=== PATIENT | female | born 1990 | race Caucasian/White ===

== ENCOUNTER → 2017-02-18 | Outpatient (CLI) | payer OTHER ==
[~2017-02-18] MED LIST: FERR-57 PO; HYDR-3730 PO; LEVO50TA6 PO; LVT.05T PO; PREN1TAB71 PO; PROM25TA14 PO
== END ==
LOC: LAB 13:10
PROVIDERS: ATTEND Family Medicine
DX: E03.9 Hypothyroidism, unspecified (principal)
CPT/HCPCS: 36415; 84443

== ENCOUNTER 2017-05-16 14:06 | Outpatient (RCR) | payer OTHER | END 2017-07-23 | disposition home or self-care (01) | LOC: CARD 14:06 | PROVIDERS: ATTEND Physician Assistant | DX: R55 Syncope and collapse (principal); E03.9 Hypothyroidism, unspecified; Z82.49 Family history of ischemic heart disease and other diseases of the circulatory system; Z83.3 Family history of diabetes mellitus | CPT/HCPCS: 93225; 93226 ==

== ENCOUNTER → 2017-05-16 | Outpatient (CLI) | payer OTHER ==
[2017-05-16 14:17] LABS: BASOPHILS # (AUTO) 0.1 10^3/uL (0.0-0.1); BASOPHILS % (AUTO) 1 % (0-10); EOSINOPHILS # (AUTO) 0.1 10^3/uL (0.0-0.3); EOSINOPHILS % (AUTO) 2 % (0-10); LYMPHOCYTES # (AUTO) 2.3 X 10^3 (1.0-4.0); LYMPHOCYTES % (AUTO) 26 % (12-44); MEAN CORPUSCULAR HEMOGLOBIN 30 PG (25-34); MEAN CORPUSCULAR HGB CONC 35 G/DL (32-36); MEAN CORPUSCULAR VOLUME 88 FL (80-99); MEAN PLATELET VOLUME 10.7 FL (7.4-10.4); MONOCYTES # (AUTO) 0.8 X 10^3 (0.0-1.0); MONOCYTES % (AUTO) 9 % (0-12); NEUTROPHILS # (AUTO) 5.7 X 10^3 (1.8-7.8); NEUTROPHILS % (AUTO) 63 % (42-75); PLATELET COUNT 285 10^3/uL (130-400); RED BLOOD COUNT 4.27 10^6/uL (4.35-5.85); RED CELL DISTRIBUTION WIDTH 12.1 % (10.0-14.5); WHITE BLOOD COUNT 9.1 10^3/uL (4.3-11.0)
[2017-05-16 14:29] LABS: CALCIUM 9.1 MG/DL (8.5-10.1); CHLORIDE 103 MMOL/L (98-107); MAGNESIUM 2.6 MG/DL (1.8-2.4); POTASSIUM 3.6 MMOL/L (3.6-5.0); SODIUM 138 MMOL/L (135-145)
[2017-05-16 14:49] LABS: ALBUMIN 4.5 GM/DL (3.2-4.5); BILIRUBIN,TOTAL 0.5 MG/DL (0.1-1.0); BLOOD UREA NITROGEN 11 MG/DL (7-18); BUN/CREATININE RATIO 14; CREATININE SERUM 0.79 MG/DL (0.60-1.30); GFR ESTIMATED > 60; GLUCOSE 101 MG/DL (70-105); TOTAL PROTEIN 7.3 GM/DL (6.4-8.2)
[2017-05-16 14:50] LABS: ALANINE AMINOTRANSFERASE 15 U/L (0-55); ASPARTATE AMINO TRANSFERASE 57 U/L (5-34)
[2017-05-16 14:56] LABS: THYROID STIMULATING HORMONE 1.36 UIU/ML (0.35-4.94)
[2017-05-16 14:59] LABS: ANION GAP 10 MMOL/L (5-14); CARBON DIOXIDE 24 MMOL/L (21-32)
== END ==
LOC: CARD 13:59
PROVIDERS: ATTEND Physician Assistant
DX: R55 Syncope and collapse (principal); E03.9 Hypothyroidism, unspecified; Z82.49 Family history of ischemic heart disease and other diseases of the circulatory system; Z83.3 Family history of diabetes mellitus
CPT/HCPCS: 36415; 80053; 83735; 84443; 84703; 85025; 93306

== ENCOUNTER → 2017-08-10 | Outpatient (CLI) | payer OTHER ==
--- NOTE | 2017-08-10 17:57 | Diagnostic Imaging Report ---
PROCEDURE: MR imaging of the brain without contrast. TECHNIQUE: Multiplanar, multisequence MR imaging of the brain was performed without contrast. INDICATION: Syncope. FINDINGS: There is no diffusion restriction to suggest an acute infarct or other diffusion abnormality. The brain parenchyma has normal signal in the harris and white matter with no evidence of a demyelinating lesion, brain edema or mass. There is no hydrocephalus. No extra-axial fluid collection is seen. The pituitary gland is normal in size. No hypothalamic or pineal region mass. The central vascular flow-voids appear grossly unremarkable. The internal auditory canals and inner ear structures appear symmetric. The orbits appear symmetric. The frontal sinuses are hypoplastic. There is thickening of the mucosa along the middle and inferior turbinates suggested. IMPRESSION: No intracranial abnormality seen. Dictated by: Dictated on workstation # [id number]
== END ==
LOC: RAD 16:40
PROVIDERS: ATTEND Psychiatry & Neurology Neurology
DX: G40.309 Generalized idiopathic epilepsy and epileptic syndromes, not intractable, without status epilepticus (principal); R55 Syncope and collapse
CPT/HCPCS: 70551

== ENCOUNTER → 2017-11-23 | Outpatient (CLI) | payer OTHER ==
[~2017-11-23] VITALS: Ht 165.1 cm; Wt 68.0 kg
[2017-11-23] VITALS (31 sets, daily range): BP systolic 51–128; BP diastolic 31–96
[~2017-11-23] MED LIST changes: +ATROPINE INJECTION 1 MG/10 ML SYR (ABBOTT) ONE; +NS IV 1000 ML 1,000 ML ONE
--- NOTE | 2017-11-23 14:50 | Cardiology Tilt Table Test ---
EULA PINK 11/23/17 1450: Cardiology-Tilt Table Test Tilt Table Test Date 11/23/17 Baseline Vitals Vital Signs Date Time Temp Pulse Resp B/P (MAP) Pulse Ox O2 Delivery O2 Flow Rate FiO2 11/23/17 11:24 98.1 80 16 100 Vital Signs VS - Last 72 Hours, by Label 11/23/17 11/23/17 11/23/17 11/23/17 11:24 11:25 11:50 11:51 Temp 98.1 Pulse 80 88 89 Resp 16 B/P (MAP) 117/81 (93) 121/89 (100) 127/96 (106) Pulse Ox 100 100 99 11/23/17 11/23/17 11/23/17 11/23/17 11:52 11:52 11:54 11:55 Pulse 92 105 92 98 Resp 23 B/P (MAP) 115/89 (98) 120/91 (101) 109/89 (96) 123/91 (102) Pulse Ox 100 100 100 100 11/23/17 11/23/17 11/23/17 11/23/17 11:56 11:57 11:58 11:59 Pulse 105 111 98 83 B/P (MAP) 117/88 (98) 113/88 (96) 124/90 (101) 120/95 (103) Pulse Ox 100 100 100 98 11/23/17 11/23/17 11/23/17 11/23/17 12:00 12:02 12:03 12:04 Pulse 78 82 72 77 Resp 17 B/P (MAP) 113/76 (88) 112/74 (87) 111/78 (89) 116/76 (89) Pulse Ox 99 99 100 99 11/23/17 11/23/17 11/23/17 11/23/17 12:05 12:06 12:07 12:09 Pulse 109 121 112 131 B/P (MAP) 126/87 (100) 124/73 (90) 109/79 (89) 114/83 (93) Pulse Ox 98 98 98 98 11/23/17 11/23/17 11/23/17 11/23/17 12:11 12:12 12:15 12:16 Pulse 125 126 117 131 B/P (MAP) 117/84 (95) 109/76 (87) 116/72 (87) 128/74 (92) Pulse Ox 99 98 100 100 11/23/17 11/23/17 11/23/17 11/23/17 12:17 12:18 12:19 12:20 Pulse 123 78 90 87 B/P (MAP) 110/67 (81) 51/31 (38) 80/55 (63) 111/70 (84) Pulse Ox 99 100 99 100 11/23/17 11/23/17 11/23/17 11/23/17 12:22 12:26 12:30 12:33 Pulse 91 92 76 89 B/P (MAP) 108/77 (87) 125/91 (102) 111/84 (93) 110/73 (85) Pulse Ox 100 100 98 99 11/23/17 12:47 Pulse 90 B/P (MAP) 109/90 (96) Patient was tilted to 75 degrees for [10] minutes, then returned to supine position, given [2] sublingual nitroglycerin tablets, then tilted again to 75 degrees for [15] minutes. During test, patient was: symptomatic (hypotensive with vasovagal event with N/ V. ) In Conclusion;: Negative Tilt Table Test At stage 2, minute 10, patient became hypotensive with BP 51/31. Heart rate dropped from 130-55. Patient was symptomatic with vasovagal event with N/V. She became unable to move her arms and legs for several minutes after brought to supine position, and had severe spasm in her arms. No full syncope was noted. Recommended CHEVY hose and will consider LINq implantation for further monitoring as this test failed to produce the symptoms and syncopal events that have been occurring. This is Eula Gray PA-C, as a scribe for Dr. Zaldivar. JUSTYNA ZALDIVAR MD 11/23/17 1623: Cardiology-Tilt Table Test Tilt Table Test In Conclusion;: Negative Tilt Table Test Patient has vague reaction with severe hypotension nausea and vomiting, had severe spasm and inability to move her hands for about 10 minutes then started regaining muscle strength slowly. No full syncope was reported. Transient bradycardia with a heart rate in the 50s but patient did not have a syncopal episode, we were unable to reproduce her syncope. I instructed her to stay heart wearing CHEVY hose, we'll consider Loop recorder EULA PINK Nov 23, 2017 14:50 JUSYTNA ZALDIVAR MD Nov 23, 2017 16:23
== END ==
LOC: CARD 09:46
PROVIDERS: ATTEND Physician Assistant
DX: R55 Syncope and collapse (principal)
CPT/HCPCS: 93660

== ENCOUNTER → 2017-11-28 | Day surgery (SDC) | payer OTHER ==
[~2017-11-28] VITALS: Ht 165.1 cm; Wt 68.0 kg
[~2017-11-28] MED LIST changes: -ATROPINE INJECTION 1 MG/10 ML SYR (ABBOTT) ONE; +LIDOCAINE 1% INJ 50 ML (XYLOCAINE) VIAL ONE; -NS IV 1000 ML 1,000 ML ONE
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
[2017-11-28 10:57] VITALS: BP 120/82
--- NOTE | 2017-11-28 21:24 | OPERATIVE REPORT ---
DATE OF SERVICE: 11/28/2017 REVEAL DEVICE IMPLANTATION REPORT BRIEF HISTORY: The patient is a 27-year-old lady with history of recurrent syncope, workup has failed to reproduce the syncopal episode, still having episodes of syncope. She was scheduled for Reveal device implantation. PROCEDURE NOTE: After explaining the procedure to the patient, all pros and cons were explained. The patient was placed in the holding area. No sedation was needed. Local anesthesia applied and small skin incision was made. Then, a Reveal LINQ Medtronic with serial #[id number] implanted subcutaneously, manual pressure and Dermabond applied. No complication noted. CONCLUSION: Successful Reveal device implantation with no complication. FINAL DIAGNOSIS: Syncope. Job ID: [id number] DocumentID: [id number] Dictated Date: 11/28/2017 11:33:03 Wet Milling Wheel Operator Date: 11/28/2017 21:24:12 Dictated By: JUSTYNA BATES MD
== END | disposition home or self-care (01) ==
LOC: CATH 10:18
PROVIDERS: ATTEND Internal Medicine Cardiovascular Disease
DX: R55 Syncope and collapse (principal); E03.9 Hypothyroidism, unspecified; G40.909 Epilepsy, unspecified, not intractable, without status epilepticus; Z79.899 Other long term (current) drug therapy
CPT/HCPCS: 33282

== ENCOUNTER 2018-08-16 01:47 | Emergency (ER) | payer OTHER ==
[~2018-08-16] VITALS: Ht 165.1 cm; Wt 66.2 kg
[~2018-08-16 01:47] MED LIST changes: -LIDOCAINE 1% INJ 50 ML (XYLOCAINE) VIAL ONE
[2018-08-16] MEDS ORDERED: LACTATED RINGERS 1,000 ML IV ONE (02:01)
--- NOTE | 2018-08-16 02:09 | ED GI ---
General Chief Complaint: Abdominal/GI Problems Stated Complaint: N,V,D Source of Information: Patient, Family (father) Exam Limitations: No Limitations History of Present Illness Date Seen by Provider: Aug 16, 2018 Time Seen by Provider: 01:56 Initial Comments The patient presents to the ER by private conveyance with her father a chief complaint that she for the past day and a half has been experiencing nausea vomiting diarrhea. She's had poor oral intake because every time she eats she vomits it. She says she has no history of medical problems or history of abdominal surgeries. She's had no trauma. Her son has been sick Tuesday with some diarrhea. She denies drinking from unsafe water sources, camping, travel outside the [facility] or any history of irritable bowel syndrome or inflammatory bowel disease. She has not had anything for nausea and does not take Imodium but she had tried some Tums with minimal to no relief. She denies dysuria fevers but she does have some chills. She plan to follow-up with Dr. Castro her primary care provider tomorrow but she did not think she could make it through the night. She says last night she slept on the bathroom floor. Allergies and Home Medications Allergies Coded Allergies: No Known Drug Allergies (Unverified , 08/16/18) Home Medications Ferrous Sulfate 325 Mg Tablet, 325 MG PO BID Prescribed by: DOMINIQUE MCCLURE on 03/09/151943 Hydrocodone/Acetaminophen 1 Each Tablet, 1 EACH PO Q6H PRN for HEADACHE Prescribed by: RAMY SHANKAR on 10/07/16 1025 Levothyroxine Sodium 50 Mcg Tablet, 1 TAB PO DAILY, (Reported) Levothyroxine Sodium 50 Mcg Tablet, 50 MCG PO DAILY, (Reported) Vit/Fe Fumarate/Fa 1 Each Tablet, 1 EACH PO DAILY Prescribed by: DOMINIQUE MCCLURE on 03/09/151942 Promethazine HCl 25 Mg Tablet, 25 MG PO Q6H PRN for NAUSEA/VOMITING Prescribed by: RAMY SHANKAR on 10/07/16 1025 Patient Home Medication List Home Medication List Reviewed: Yes Review of Systems Review of Systems Constitutional: No chills, No diaphoresis EENTM: No Blurred Vision, No Double Vision Respiratory: Denies Cough, Denies Shortness of Air Cardiovascular: Denies Chest Pain, Denies Edema Gastrointestinal: Denies Abdomen Distended; Abdominal Pain; Denies Constipated ; Diarrhea, Nausea, Poor Fluid Intake, Vomiting Genitourinary: Denies Burning, Denies Discharge Musculoskeletal: No back pain, No joint pain Skin: No pruritus, No rash Past [id number]-Cdxsxz-Efmadr Hx Patient Social History Alcohol Use: Rarely Uses Recreational Drug Use: No Smoking Status: Never a Smoker Recent Foreign Travel: No Contact w/Someone Who Travel: No Immunizations Up To Date Tetanus Booster (TDap): Less than 5yrs PED Vaccines UTD: Yes Past Medical History Reproductive Disorders: No Female Reproductive Disorders: Denies Sexually Transmitted Disease: No HIV/AIDS: No Fractures Eczema Adverse Reaction/Blood Tranf: No Family Medical History Hypercholesterolemia 19 MOTHER Hypertension 19 MOTHER No Family History of: AIDS Abdominal aortic aneurysm [place]'s disease Alcoholism Alzheimer's disease Aphasia Arthritis Asthma Cancer of mouth Cardiovascular disease Cataracts Colon cancer Completed stroke Congenital disease Congenital heart disease Coronary thrombosis Cystic fibrosis Deafness or hearing loss Dementia Diabetes mellitus Drug abuse Dysphasia Fibrocystic disease of breast Gastroenteritis Glaucoma Headache disorder Infertility Kidney disease Myocardial infarction Neoplasm Not obtainable due to adoption Osteoporosis Parkinson's disease Prostate cancer Psychosocial problem Respiratory disorder Seizure disorder Severe allergy Thyroid disease Tuberculosis Visual disorder Physical Exam Vital Signs Vital Signs - First Documented 08/16/18 01:55 Temp 97.4 Pulse 110 Resp 22 B/P (MAP) 137/101 (113) Pulse Ox 100 O2 Delivery Room Air Capillary Refill : Less Than 3 Seconds Height/Weight/BMI Height: 5'5.00" Weight: 146lbs. 0.0oz. 66.433678vu; 25.0 BMI Method:Stated General Appearance: WD/WN, no apparent distress HEENT: PERRL/EOMI, TMs normal, pharynx normal Respiratory: lungs clear, no respiratory distress, no accessory muscle use Cardiovascular: normal peripheral pulses, regular rate, rhythm, no edema Peripheral Pulses: 2+ Radial Pulses (R), 2+ Radial Pulses (L) Gastrointestinal: soft, no organomegaly, abnormal bowel sounds (active); No rebound; other (negative for Garrett sign or rebound tenderness or McBurney's point tenderness. Generally tender to palpation mildly all 4 quadrants.) Extremities: normal range of motion, normal inspection, normal capillary refill Skin: normal color, warm/dry Progress/Results/Core Measures Results/Orders Lab Results Laboratory Tests Test 08/16/18 02:10 08/16/18 02:50 Range/Units White Blood Count 11.3 H 4.3-11.0 10^3/uL Red Blood Count 4.64 4.35-5.85 10^6/uL Hemoglobin 14.4 11.5-16.0 G/DL Hematocrit 40 35-52 % Mean Corpuscular Volume 86 80-99 FL Mean Corpuscular Hemoglobin 31 25-34 PG Mean Corpuscular Hemoglobin Concent 36 32-36 G/DL Red Cell Distribution Width 12.3 10.0-14.5 % Platelet Count 331 130-400 10^3/uL Mean Platelet Volume 10.8 H 7.4-10.4 FL Neutrophils (%) (Auto) 73 42-75 % Lymphocytes (%) (Auto) 15 12-44 % Monocytes (%) (Auto) 10 0-12 % Eosinophils (%) (Auto) 2 0-10 % Basophils (%) (Auto) 0 0-10 % Neutrophils # (Auto) 8.2 H 1.8-7.8 X 10^3 Lymphocytes # (Auto) 1.6 1.0-4.0 X 10^3 Monocytes # (Auto) 1.2 H 0.0-1.0 X 10^3 Eosinophils # (Auto) 0.2 0.0-0.3 10^3/uL Basophils # (Auto) 0.0 0.0-0.1 10^3/uL Sodium Level 138 135-145 MMOL/L Potassium Level 3.8 3.6-5.0 MMOL/L Chloride Level 101 98-107 MMOL/L Carbon Dioxide Level 22 21-32 MMOL/L Anion Gap 15 H 5-14 MMOL/L Blood Urea Nitrogen 11 7-18 MG/DL Creatinine 0.85 0.60-1.30 MG/DL Estimat Glomerular Filtration Rate > 60 BUN/Creatinine Ratio 13 Glucose Level 112 H 70-105 MG/DL Calcium Level 11.1 H 8.5-10.1 MG/DL Corrected Calcium 8.5-10.1 MG/DL Magnesium Level 2.3 1.8-2.4 MG/DL Total Bilirubin 1.0 0.1-1.0 MG/DL Aspartate Amino Transf (AST/SGOT) 46 H 5-34 U/L Alanine Aminotransferase (ALT/SGPT) 13 0-55 U/L Alkaline Phosphatase 72 40-136 U/L C-Reactive Protein High Sensitivity 1.08 H 0.00-0.50 MG/DL Total Protein 8.5 H 6.4-8.2 GM/DL Albumin 5.1 H 3.2-4.5 GM/DL Lipase 20 8-78 U/L Serum Test, Qualitative NEGATIVE NEGATIVE Urine Color YELLOW Urine Clarity CLEAR Urine pH 8 5-9 Urine Specific Ubly 1.010 L 1.016-1.022 Urine Protein 1+ H NEGATIVE Urine Glucose (UA) NEGATIVE NEGATIVE Urine Ketones 3+ H NEGATIVE Urine Nitrite NEGATIVE NEGATIVE Urine Bilirubin 1+ H NEGATIVE Urine Urobilinogen 1 NORMAL MG/DL Urine Leukocyte Esterase 1+ H NEGATIVE Urine RBC (Auto) NEGATIVE NEGATIVE Urine RBC NONE /HPF Urine WBC RARE /HPF Urine Squamous Epithelial Cells 5-10 /HPF Urine Crystals NONE /LPF Urine Bacteria TRACE /HPF Urine Casts NONE /LPF Urine Mucus MODERATE H /LPF Urine Culture Indicated NO My Orders Orders - RUBEN FREITAS Cbc With Automated Diff (08/16/18 02:01) Comprehensive Metabolic Panel (08/16/18 02:01) Hs C Reactive Protein (08/16/18 02:01) Hcg,Qualitative Serum (08/16/18 02:01) Lipase (08/16/18 02:01) Magnesium (08/16/18 02:01) Ua Culture If Indicated (08/16/18 02:01) Saline Lock/Iv-Start (08/16/18 02:01) Lactated Ringers (Lr 1000 Ml Iv Solution (08/16/18 02:01) Ondansetron Injection (Zofran Injectio (08/16/18 02:15) Lidocaine 2% Viscous 15 Ml (Xylocaine Vi (08/16/18 03:30) Famotidine Tablet (Pepcid Tablet) (08/16/18 03:20) Antacid Suspension (Mylanta Suspension (08/16/18 03:30) Medications Given in ED Current Medications Medications Dose Ordered Sig/Peggy Route Start Time Stop Time Status Last Admin Dose Admin Al Hydrox/Mg Hydrox/Simethicone 30 ml ONCE ONCE PO 08/16/18 03:30 08/16/18 03:31 DC 08/16/18 03:25 30 ML Lactated Ringer's 1,000 ml @ 0 mls/hr Q0M ONCE IV 08/16/18 02:01 08/16/18 02:04 DC 08/16/18 02:16 1,000 MLS/HR Lidocaine HCl 15 ml ONCE ONCE PO 08/16/18 03:30 08/16/18 03:31 DC 08/16/18 03:25 15 ML Ondansetron HCl 4 mg ONCE ONCE IVP 08/16/18 02:15 08/16/18 02:16 DC 08/16/18 02:16 4 MG Vital Signs/I&O 08/16/18 01:55 Temp 97.4 Pulse 110 Resp 22 B/P (MAP) 137/101 (113) Pulse Ox 100 O2 Delivery Room Air Progress Progress Note #1: Time: 02:07 Progress Note The patient appears mildly dehydrated. She sounds like she has gastroenteritis probably from a virus. No significant risk factors. Check some basic labs give some IV fluids and IV Zofran on board and check a lipase, UA, hCG. Progress Note #2: Time: 03:33 Progress Note the patient's nausea and fluids resolved. She still complaining of burning, reflux pain so we gave her a GI cocktail and that seemed to help some. Let her go home with some take-home Zofran. Departure Impression Primary Impression: Gastroenteritis and colitis, viral Additional Impression: GERD (gastroesophageal reflux disease) Qualified Codes: K21.9 - Gastro-esophageal reflux disease without esophagitis Disposition: 01 HOME, SELF-CARE Condition: Improved Departure-Patient Inst. Decision time for Depature: 03:34 Referrals: KOBY PARK MD (PCP/Family) Primary Care Physician Patient Instructions: [id number] Add. Discharge Instructions: Use the Zofran every 6 hours as needed. If you're having acid reflux you can take Tums or Mylanta. If you're having diarrhea you can take 2 tablets of Imodium followed by one tablet every 4 hours afterwards if you're still having loose watery stools. Eating a liquid diet and as you tolerate this you can advance to a more bland foods such as bananas, rice, applesauce and toast. All discharge instructions reviewed with patient and/or family. Voiced understanding. Scripts Ondansetron (Ondansetron Odt) 4 Mg Tab.rapdis 4 MG PO Q6H PRN for NAUSEA/VOMITING, #8 TAB 0 Refills Prov: RUBEN FREITAS 08/16/18 Work/School Note: Work Release Form Date Seen in the Emergency Department: Aug 16, 2018 Return to Work: Aug 17, 2018 Restrictions: No Restrictions RUBEN FREITAS Aug 16, 2018 02:09
[2018-08-16] MEDS ORDERED: ONDANSETRON 4 MG/2 ML (SDV) Z0FRAN IVP ONE (02:15)
[2018-08-16 02:19] LABS: BASOPHILS % (AUTO) 0 % (0-10); EOSINOPHILS # (AUTO) 0.2 10^3/uL (0.0-0.3); EOSINOPHILS % (AUTO) 2 % (0-10); HEMATOCRIT 40 % (35-52); HEMOGLOBIN 14.4 G/DL (11.5-16.0); LYMPHOCYTES # (AUTO) 1.6 X 10^3 (1.0-4.0); LYMPHOCYTES % (AUTO) 15 % (12-44); MEAN CORPUSCULAR HEMOGLOBIN 31 PG (25-34); MEAN CORPUSCULAR HGB CONC 36 G/DL (32-36); MEAN CORPUSCULAR VOLUME 86 FL (80-99); MEAN PLATELET VOLUME 10.8 FL (7.4-10.4); MONOCYTES # (AUTO) 1.2 X 10^3 (0.0-1.0); MONOCYTES % (AUTO) 10 % (0-12); NEUTROPHILS # (AUTO) 8.2 X 10^3 (1.8-7.8); NEUTROPHILS % (AUTO) 73 % (42-75); PLATELET COUNT 331 10^3/uL (130-400); RED BLOOD COUNT 4.64 10^6/uL (4.35-5.85); RED CELL DISTRIBUTION WIDTH 12.3 % (10.0-14.5); WHITE BLOOD COUNT 11.3 10^3/uL (4.3-11.0)
[2018-08-16] MEDS ORDERED: LEVE250T18 PO (02:35)
[2018-08-16 02:38] LABS: ALANINE AMINOTRANSFERASE 13 U/L (0-55); ALBUMIN 5.1 GM/DL (3.2-4.5); ALKALINE PHOSPHATASE 72 U/L (40-136); BUN/CREATININE RATIO 13; CALCIUM 11.1 MG/DL (8.5-10.1); CARBON DIOXIDE 22 MMOL/L (21-32); CHLORIDE 101 MMOL/L (98-107); CREATININE SERUM 0.85 MG/DL (0.60-1.30); GFR ESTIMATED > 60; GLUCOSE 112 MG/DL (70-105); LIPASE 20 U/L (8-78); MAGNESIUM 2.3 MG/DL (1.8-2.4); POTASSIUM 3.8 MMOL/L (3.6-5.0); SODIUM 138 MMOL/L (135-145); TOTAL PROTEIN 8.5 GM/DL (6.4-8.2)
[2018-08-16 02:57] LABS: CLARITY,URINE CLEAR; COLOR,URINE YELLOW; GLUCOSE, URINE (UA) NEGATIVE (NEGATIVE); KETONES,URINE 3+ (NEGATIVE); LEUKOCYTE ESTERASE ,URINE 1+ (NEGATIVE); NITRITE,URINE NEGATIVE (NEGATIVE); PH,URINE 8 (5-9); PROTEIN,URINE 1+ (NEGATIVE); UROBILINOGEN,URINE 1 MG/DL (NORMAL)
[2018-08-16 03:05] LABS: BACTERIA,URINE TRACE /HPF; BILIRUBIN,URINE 1+ (NEGATIVE); WBC,URINE RARE /HPF
[2018-08-16] MEDS ORDERED: FAMOTIDINE 20 MG (PEPCID) TABLET PO STA (03:20)
[2018-08-16] MEDS ORDERED: LIDOCAINE 2% VISCOUS 15 ML UDC PO ONE (03:30)
[2018-08-16] MEDS ORDERED: ANTACID SUSP 30 ML UDC (MYLANTA) PO ONE (03:30)
[2018-08-16] MEDS ORDERED: ONDA4TAB11 PO (03:40)
[2018-08-16] MEDS ORDERED: RX-ONDANSETRON 4 MG ODT (ZOFRAN) PPK #4 PO STA (03:41)
[2018-08-16 04:12] VITALS: BP 109/87
== END 2018-08-16 04:08 | disposition home or self-care (01) ==
LOC: EDUNIT# 01:47 → ER 01:49
DX: A08.4 Viral intestinal infection, unspecified (principal); K21.9 Gastro-esophageal reflux disease without esophagitis
CPT/HCPCS: 36415; 80053; 81000; 83690; 83735; 84703; 85025; 86141; 96361; 96374

== ENCOUNTER → 2018-09-28 | Outpatient (CLI) | payer OTHER ==
[~2018-09-28] MED LIST changes: +LEVE250T18 PO; +ONDA4TAB11 PO
== END ==
LOC: LAB 10:56
PROVIDERS: ATTEND Physician Assistant
DX: Z32.01 Encounter for pregnancy test, result positive (principal)
CPT/HCPCS: 36415; 84703

== ENCOUNTER → 2018-10-20 | Outpatient (CLI) | payer OTHER ==
--- NOTE | 2018-10-20 12:05 | Diagnostic Imaging Report ---
PROCEDURE: US OB SINGLE FETUS <14 WKS. TECHNIQUE: Multiple real-time grayscale images were obtained over the gravid uterus in various projections. INDICATION: dating. FINDINGS: There is an intrauterine gestational sac containing a pole. [place]-rump length measurement is approximately 11 mm consistent with 7 weeks 2 days gestation. heart rate is recorded at 163 beats per minute. No perigestational sac hemorrhage is detected. Gestational sac shape is within normal limits. Ovaries could not be visualized. No adnexal mass or free fluid is seen. IMPRESSION: Single live IUP of approximately 7 weeks 2 days gestational age with estimated date of confinement sonographically approximately 06/06/2019. No complicating feature is detected. Dictated by: Dictated on workstation # [id number]
== END ==
LOC: RAD 09:31
PROVIDERS: ATTEND Family Medicine
DX: Z36.89 Encounter for other specified antenatal screening (principal); Z3A.01 Less than 8 weeks gestation of pregnancy
CPT/HCPCS: 76801

== ENCOUNTER → 2019-01-26 | Outpatient (CLI) | payer BC, OTHER ==
--- NOTE | 2019-01-26 14:03 | Diagnostic Imaging Report ---
INDICATION: survey. TECHNIQUE: Multiple real-time grayscale images were obtained over the gravid uterus. COMPARISON: 10/20/2018. FINDINGS: There is a single live fetus in a breech presentation. heart rate was recorded at 143 beats per minute. Placenta is anterior. Amniotic fluid volume is normal. Cervical length is approximately 4.0 cm. survey demonstrates kidneys, bladder, and stomach to be unremarkable. brain is unremarkable. There is a four-chamber heart. There is a three-vessel cord with normal insertion. The spine is unremarkable. Biometrical measurements are as follows: Biparietal 5.21 cm, age 21 weeks 6 days. Head circumference 19.21 cm, age 21 weeks 4 days. Abdominal circumference 16.78 cm, age 21 weeks 6 days. Femur length 3.68 cm, age 21 weeks 5 days. Sonographic estimate age: 21 weeks 6 days. Sonographic estimated date of delivery: 06/02/2019. Estimated Weight: 446 gm (+/- 65 gm). LMP percentile: 68%. heart rate: 143 beats per minute. number: 1 of 1. IMPRESSION: Single live IUP of 21 weeks 6 days gestational age demonstrating normal interval growth when compared with prior exam from 10/20/2018. Dictated by: Dictated on workstation # [id number]
== END ==
LOC: RAD 12:20
PROVIDERS: ATTEND Family Medicine
DX: Z36.89 Encounter for other specified antenatal screening (principal); Z3A.21 21 weeks gestation of pregnancy
CPT/HCPCS: 76805

== ENCOUNTER → 2019-03-14 | Outpatient (CLI) | payer OTHER | LOC: LAB 09:36 | PROVIDERS: ATTEND Family Medicine | DX: Z29.13 Encounter for prophylactic Rho(D) immune globulin (principal) ==

== ENCOUNTER 2019-05-17 16:50 | Outpatient (CLI) | payer OTHER ==
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
--- NOTE | 2019-05-17 16:57 | NUR ---
KRISTA RODRIGUEZ presented to unit via ambulation from Dr. Blanco's office, with c/o DECREASED MOVEMENT. KRISTA RODRIGUEZ weighed, gowned, voided, and to bed. EFHM and TOCO applied, VS taken. KRISTA RODRIGUEZ oriented to bed controls, call light, TV, heat, and A/C controls.
--- NOTE | 2019-05-17 17:39 | NUR ---
Dr. Blanco called and notified of reactive NST, ctx pattern. OK to D/C home with labor precautions.
[2019-05-17 17:45] VITALS: BP 124/71
== END 2019-05-17 17:50 | disposition home or self-care (01) ==
LOC: LDRP 16:50 → WSo 16:50 → LDRP 16:50 → UNDOADMOB 16:50 → UNDODISOB 17:50 → WSo 17:50 → EDSTATUS 05-21 13:47
PROVIDERS: ATTEND Family Medicine
DX: O36.8190 Decreased fetal movements, unspecified trimester, not applicable or unspecified (principal)
CPT/HCPCS: 59025

== ENCOUNTER 2019-06-05 19:00 | Inpatient (IN) | payer BC, OTHER ==
[~2019-06-05] VITALS: Ht 165.1 cm; Wt 66.2 kg
--- NOTE | 2019-06-05 19:00 | NUR ---
KRISTA RODRIGUEZ presented to unit via from ED, accompanied by S/O, with c/o INDUCTION. KRISTA RODRIGUEZ weighed, gowned, voided, and to bed. EFHM and TOCO applied, VS taken. KRISTA RODRIGUEZ oriented to bed controls, call light, TV, heat, and A/C controls. Assessments to follow per GIOVANI RODRIGUEZ.
[2019-06-05 19:15] VITALS: BP 122/79
[2019-06-05] MEDS ORDERED: MISOPROSTOL 100 MCG (CYTOTEC) TAB ONE (19:17)
[2019-06-05] MEDS ORDERED: D5 LR IV SOLUTION 1,000 ML IV ONE (19:17)
[2019-06-05] MEDS ORDERED: LACTATED RINGERS 1,000 ML IV SCH (19:26)
[2019-06-05] MEDS ORDERED: MINERAL OIL CONCENTRATE 99.9% 15 ML UDC TOP PRN (19:30)
[2019-06-05] MEDS ORDERED: TERBUTALINE INJ 1 MG/ML (BRETHINE) AMP SC PRN (19:30)
[2019-06-05] MEDS ORDERED: BUTORPHANOL INJ 2 MG/ML (STADOL) VIAL IV PRN (19:30)
[2019-06-05] MEDS ORDERED: MISOPROSTOL 100 MCG (CYTOTEC) TAB PO NR (19:30)
[2019-06-05] MEDS ORDERED: ZOLPIDEM 5 MG (AMBIEN) TAB PO NR (19:30)
[2019-06-05] MEDS: D5 LR IV SOLUTION 1,000 ML IV SCH (19:52)
[2019-06-05 19:59] LABS: BASOPHILS % (AUTO) 0 % (0-10); EOSINOPHILS # (AUTO) 0.1 10^3/uL (0.0-0.3); EOSINOPHILS % (AUTO) 1 % (0-10); HEMATOCRIT 32 % (35-52); HEMOGLOBIN 10.7 G/DL (11.5-16.0); LYMPHOCYTES # (AUTO) 2.5 X 10^3 (1.0-4.0); LYMPHOCYTES % (AUTO) 19 % (12-44); MEAN CORPUSCULAR HEMOGLOBIN 31 PG (25-34); MEAN CORPUSCULAR HGB CONC 33 G/DL (32-36); MEAN CORPUSCULAR VOLUME 94 FL (80-99); MEAN PLATELET VOLUME 11.6 FL (7.4-10.4); MONOCYTES # (AUTO) 1.2 X 10^3 (0.0-1.0); MONOCYTES % (AUTO) 9 % (0-12); NEUTROPHILS # (AUTO) 9.2 X 10^3 (1.8-7.8); NEUTROPHILS % (AUTO) 71 % (42-75); PLATELET COUNT 230 10^3/uL (130-400); RED CELL DISTRIBUTION WIDTH 14.7 % (10.0-14.5)
[2019-06-05 20:50] VITALS: BP 110/64
[2019-06-05 21:50] VITALS: BP 110/64
[2019-06-05] MEDS ORDERED: CATHETER FLUSH 10 ML SYR IV SCH (22:00)
[2019-06-05 22:50] VITALS: BP 112/70
[2019-06-05] MEDS ORDERED: FOLI0.8T PO (23:19)
[2019-06-05] MEDS ORDERED: MISOPROSTOL 100 MCG (CYTOTEC) TAB PO SCH (23:30)
[2019-06-05 23:50] VITALS: BP 111/69
[2019-06-06] VITALS (54 sets, daily range): BP systolic 100–135; BP diastolic 56–98
[2019-06-06] MEDS: D5 LR IV SOLUTION 1,000 ML IV SCH ×2 (03:45→10:56)
--- NOTE | 2019-06-06 07:40 | History & Physical-OB ---
OB - Chief Complaint & HPI Date/Time Date of Admission: Date of Admission: Jun 05, 2019 at 19:00 Date seen by a Provider: Jun 06, 2019 Time Seen by a Provider: 07:10 Chief Complaint/History OB-Reason for Admission/Chief: Induction of Labor Hx : 2 Hx Para: 1 Expected Date of Delivery: Jun 06, 2019 Gestational Age in Weeks: 39 Gestational Age in Days: 6 Admission Nurse Assessment Rev: Yes History of Labs GBS negative Allergies and Home Medications Allergies Coded Allergies: No Known Drug Allergies (Unverified , 08/16/18) Home Medications Ferrous Sulfate 325 Mg Tablet, 325 MG PO BID Prescribed by: DOMINIQUE MCCLURE on 03/09/151943 Levetiracetam 250 Mg Tablet, 500 MG PO BID, (Reported) Levothyroxine Sodium 50 Mcg Tablet, 1 TAB PO DAILY, (Reported) Vit/Fe Fumarate/Fa 1 Each Tablet, 1 EACH PO DAILY Prescribed by: DOMINIQUE MCCLURE on 03/09/151942 Patient Home Medication List Home Medication List Reviewed: Yes OB - History Hx of Present Care: Yes Ultrasounds: Normal mid trimester US Obstetrical Complications: None Medical Complications: None Obstetrical History Hx Termination: No Hx Multiple Gestation: No Hx Stillbirth: No Hx Complication: No Hx Induced Hypertens: No Hx Maternal Gestational Diabet: No Delivery History Hx Dystocia: No Hx Large For Gestational Age I: No Hx Small for Gestational Age I: No Hx Section: No Hx Vaginal Delivery Post C-Sec: No Hx Blood Disorders: No Adverse Rxn to Tranfusion: No Patient Past Medical History Thyroid replacement Social History/Family History HIV/AIDS: No Sexually Transmitted Disease: No Alcohol Use: Denies Use Recreational Drug Use: No 2nd Hand Smoke Exposure: No Immunizations Hepatitis A: Yes Hepatitis B: Yes Tetanus Booster (TDap): Less than 5yrs OB - Admission Exam Physical Exam Vitals: Vital Signs 06/06/19 05:50 Temp 97.9 Pulse 65 Resp 18 B/P (MAP) 101/60 (74) O2 Delivery Room Air HEENT: Moist Membranes Heart: Rhythm Normal Lungs: Clear Abdomen: Gravid Extremities: Normal Cervical Dilatation: 2cm Effacement: 50% Station: -3 Membranes: Intact Heart Rate: 140's Accelerations: Accelerations Present Short Term Variability: Present Jail Variability: Average (6-25) Contractions on Admission: >10 Minutes Apart (on admit) Intensity: Mild Gorman Scoring Tool (Modified) Dilation (cm): 1-2cm (1) Effacement (%): 31-51% (1) Descent/Station: -3 (0) Cervix Consistency: Medium(1) Cervix Position: Middle/Mid-Position (1) Add 1 point for: Each previous vaginal delivery (1) Gorman Score: 5 Labs Laboratory Tests Test 06/05/19 19:45 Range/Units White Blood Count 13.0 H 4.3-11.0 10^3/uL Red Blood Count 3.43 L 4.35-5.85 10^6/uL Hemoglobin 10.7 L 11.5-16.0 G/DL Hematocrit 32 L 35-52 % Mean Corpuscular Volume 94 80-99 FL Mean Corpuscular Hemoglobin 31 25-34 PG Mean Corpuscular Hemoglobin Concent 33 32-36 G/DL Red Cell Distribution Width 14.7 H 10.0-14.5 % Platelet Count 230 130-400 10^3/uL Mean Platelet Volume 11.6 H 7.4-10.4 FL Neutrophils (%) (Auto) 71 42-75 % Lymphocytes (%) (Auto) 19 12-44 % Monocytes (%) (Auto) 9 0-12 % Eosinophils (%) (Auto) 1 0-10 % Basophils (%) (Auto) 0 0-10 % Neutrophils # (Auto) 9.2 H 1.8-7.8 X 10^3 Lymphocytes # (Auto) 2.5 1.0-4.0 X 10^3 Monocytes # (Auto) 1.2 H 0.0-1.0 X 10^3 Eosinophils # (Auto) 0.1 0.0-0.3 10^3/uL Basophils # (Auto) 0.0 0.0-0.1 10^3/uL OB - Assessment/Plan/Diagnosis Assessment Assessment: induction of labor Admission Dx 1. IUP at term [id number] on admit Admission Status: Inpatient Order (span 2 midnights) Reason for Inpatient Admission: Induction of labor Plan Plan: Induction Induction Method: per Misoprostol Protocol Other Plan -epidural planned -pitocin as necessary KOBY PARK MD Jun 06, 2019 07:40
[2019-06-06] MEDS ORDERED: OXYTOCIN/NORMAL SALINE 500 ML IV ONE (07:41)
[2019-06-06] MEDS ORDERED: OXYTOCIN/NORMAL SALINE 500 ML IV SCH ×2 (07:44→15:48)
[2019-06-06] MEDS ORDERED: LACTATED RINGERS 1,000 ML IV ONE (07:57)
[2019-06-06] MEDS ORDERED: SUFENTA 0.6MCG/ML BUPIVA 0.125 100 ML ONE (07:58)
--- NOTE | 2019-06-06 08:40 | NUR ---
0840 Devorah BELTRAN CRNA here for epidural placement. Procedure explained, consent reviewed and signed by anesthesia. Questions answered to patient's satisfaction. Time out taken to verify correct patient/procedure. 0849 Patient up to side of bed, assisted into sitting position. 0853 Betadine prep done x3 and sterile drape applied. 0856 Local done, see anesthesia record. 0858 Test dose given, see anesthesia record for drug and dosage. 0901 Test dose #2 given, see anesthesia record for drug and dosage. Epidural catheter secured in place. Epidural placement complete. 0905 Assisted back into bed, monitors adjusted. Epidural dosed, see anesthesia record. Epidural of Sufenta/Bupvicaine @12cc/hr stated per pump. Patient tolerated procedure well.
[2019-06-06] MEDS ORDERED: LACTATED RINGERS 1,000 ML IV SCH (09:16)
[2019-06-06] MEDS ORDERED: EPIDURAL (SUFENTA 0.6MCG/ML BUPIVA 0.125%) 100 ML BAG EPI SCH (09:30)
[2019-06-06] MEDS ORDERED: NALOXONE 0.4 MG/ML 1 ML (NARCAN) VIAL IV PRN ×2 (09:30)
[2019-06-06] MEDS ORDERED: METOCLOPRAMIDE INJ 10 MG/2 ML (REGLAN) IV PRN (09:30)
[2019-06-06] MEDS ORDERED: diphenhydrAMINE 50 MG/ML INJ (BENADRYL) IV PRN (09:30)
[2019-06-06] MEDS ORDERED: ONDANSETRON 4 MG/2 ML (SDV) Z0FRAN IV PRN (09:30)
[2019-06-06] MEDS ORDERED: MEPIVACAINE (CARBOCAINE) 2% 50 ML VIAL ONE (14:38)
--- NOTE | 2019-06-06 15:56 | OB Labor & Delivery Record ---
L&D History Date of Service Date of Service: Jun 06, 2019 History Expected Date of Delivery: Jun 06, 2019 Gestational Age in Weeks: 39 Hx : 2 Hx Para: 2 Complications Events: Routine care Operative Indications (Cesarea: N/A-Vaginal Delivery Intrapartal Events: None L&D Stage1 Stage One Onset of Labor - Date: Jun 06, 2019 Onset of Labor - Time: 07:15 Monitors and Tracing Monitor Mode: Internal Heart Rate: 135 Monitor Accelerations: Uniform Monitor Decelerations: Variable Station: -2 Senior Care Variability: Average (6-10) Short Term Variability: Present Presentation: Vertex Vital Signs VS - Last 72 Hours, by Label 06/05/19 06/05/19 06/05/19 06/05/19 19:15 20:50 21:50 22:50 Temp 97.2 Pulse 78 82 82 68 Resp 18 18 18 18 B/P (MAP) 122/79 (93) 110/64 (79) 110/64 (79) 112/70 (84) O2 Delivery Room Air Room Air Room Air Room Air 06/05/19 06/06/19 06/06/19 06/06/19 23:50 00:50 01:50 02:50 Temp 98.0 Pulse 68 58 67 50 Resp 18 18 18 18 B/P (MAP) 111/69 (83) 110/68 (82) 106/72 (83) 116/62 (80) O2 Delivery Room Air Room Air Room Air Room Air 06/06/19 06/06/19 06/06/19 06/06/19 03:50 04:50 05:50 06:55 Temp 97.9 Pulse 67 75 65 75 Resp 18 18 18 18 B/P (MAP) 110/70 (83) 118/78 (91) 101/60 (74) 125/70 (88) O2 Delivery Room Air Room Air Room Air Room Air 06/06/19 06/06/19 06/06/19 06/06/19 07:49 07:54 07:56 08:10 Temp 98.3 Pulse 78 74 70 Resp 18 18 18 B/P (MAP) 131/82 (98) 115/69 (84) 130/70 (90) O2 Delivery Room Air Room Air Room Air 06/06/19 06/06/19 06/06/1919 08:25 08:41 08:50 08:53 Pulse 72 56 68 61 Resp 18 18 18 18 B/P (MAP) 110/56 (74) 100/69 (79) 119/87 (98) 127/82 (97) Pulse Ox 97 O2 Delivery Room Air Room Air Room Air Room Air 06/06/19 06/06/19 06/06/19 06/06/19 08:56 08:59 09:02 09:04 Pulse 68 75 68 91 Resp 18 18 18 18 B/P (MAP) 127/91 (103) 106/68 (81) 106/72 (83) 110/71 (84) Pulse Ox 97 98 98 97 O2 Delivery Room Air Room Air Room Air Room Air 06/06/19 06/06/19 06/06/19 06/06/19 09:07 09:11 09:14 09:17 Temp 98.0 Pulse 69 67 75 67 Resp 18 18 18 18 B/P (MAP) 124/70 (88) 117/66 (83) 111/66 (81) Pulse Ox 97 98 95 O2 Delivery Room Air Room Air Room Air Room Air 06/06/19 06/06/19 06/06/19 06/06/19 09:21 09:27 09:32 09:36 Pulse 66 67 75 67 Resp 18 18 18 18 B/P (MAP) 118/66 (83) 114/74 (87) 108/63 (78) 106/62 (77) Pulse Ox 97 96 96 97 O2 Delivery Room Air Room Air Room Air Room Air 06/06/19 09:42 Pulse 65 Resp 18 B/P (MAP) 105/61 (76) Pulse Ox 96 O2 Delivery Room Air Signs of Distress by FHT Signs of Distress no Rupture of Membranes Spontaneous Ruture of Membrane: No Amniotic Membrane Rupture Time: 0715 Amniotic Membrane Fluid Desc.: Clear Vaginal Bleeding Description: None Induction/Anesthesia Epidural Cath Placement - Time: 57 L&D Stage2 Stage Two Stage II Date: Jun 06, 2019 Stage II Time: 15:10 Monitors and Tracing Monitor Mode: Internal Heart Rate: 135 Monitor Accelerations: Uniform Monitor Decelerations: Variable Senior Care Variability: Average (6-10) Short Term Variability: Present Position: Left Occiput Anterior Presentation: Vertex Signs of Distress by FHT Signs of Distress no Cord Descript/Complications Cord Vessel Description: 3 Vessels Delivery Type Delivery Method: Spontaneous Vaginal Anterior Shoulder: Left Episiotomy/Perineal Laceration Laceraction(s)/Extensions: Yes Episiotomy Description: Midline Sutures Used: Vicryl Condition of Delivery 1 minute Comment: 7 5 minute Comment: 9 Condition of Infant Condition of : Living Exam: No Observed Abnormalities Resuscitation Resuscitation: N/A - Spontaneous Resp L&D Stage3 Stage Three Stage III Date: Jun 06, 2019 Stage III Time: 15:14 Pictocin Pitocin Administration mu/min: 6 Pitocin ml/hr: 6 Pitocin Administration Comment: 1006 PITOCIN INCREASED. Placenta Delivery Placenta Delivery: Spontaneous Delivery Summary Summary Estimated blood loss (mL): 200 Condition of Delivery Examined: Cervix Examined Post Hemorrhage: No Intervention Required none KOBY PARK MD Jun 06, 2019 15:56
[2019-06-06] MEDS ORDERED: WITCH HAZEL(TUCKS) 40 EA JAR TOP PRN (16:00)
[2019-06-06] MEDS ORDERED: BENZOCAINE/MENTHOL (DERMOPLAST) 56 ML CAN TP PRN (16:00)
[2019-06-06] MEDS ORDERED: MEASLES,MUMPS,RUBELLA 1 EA INJ SQ ONE (16:00)
[2019-06-06] MEDS ORDERED: TETANUS,DIPTH,PERTUSS P/F (BOOSTRIX) 0.5 ML VIAL IM ONE (16:00)
--- NOTE | 2019-06-06 17:00 | NUR ---
REFER TO LABOR FLOW SHEET.
[2019-06-06] MEDS: IBUPROFEN 600 MG (MOTRIN) TAB PO SCH (18:09)
--- NOTE | 2019-06-06 18:28 | NUR ---
PT ASSISTED UP TO THE BATHROOM, PT STEADY ON HER FEET. + VOID, + PERICARE. NEW PAD AND PANTIES ON. NEW GOWN. PT AMBULATES FROM WS-320 TO WS-311 IN STABLE CONDITION ACC BY THIS RN, S/O AND . TEACHING DONE: ROOM SURROUNDINGS, INFO PACKET, AND POC. FRESH ICE WATER PROVIDED. NO NEEDS OR QUESTIONS VOICED AT THIS TIME.
--- NOTE | 2019-06-06 18:53 | NUR ---
PT SITTING UP IN THE CHAIR, INFANT. IV FLUIDS COMPLETE, SALINE LOCKED AT THIS TIME. NO NEEDS VOICED. CALL LIGHT WITHIN REACH.
[2019-06-06] MEDS ORDERED: LEVETIRACETAM 500 MG (KEPPRA) TAB PO SCH ×2 (21:00)
[2019-06-06] MEDS: DOCUSATE SODIUM 100 MG (COLACE) CAP PO SCH (21:25)
[2019-06-06] MEDS: ACETAMINOPHEN 500 MG TAB (TYLENOL) PO SCH (21:36)
[2019-06-06] MEDS ORDERED: CATHETER FLUSH 10 ML SYR IV SCH (22:00)
[2019-06-07 01:30] VITALS: BP 114/78
[2019-06-07] MEDS: IBUPROFEN 600 MG (MOTRIN) TAB PO SCH ×3 (01:30→13:53)
[2019-06-07 05:30] VITALS: BP 94/58
[2019-06-07 05:52] LABS: BASOPHILS % (AUTO) 0 % (0-10); EOSINOPHILS # (AUTO) 0.1 10^3/uL (0.0-0.3); EOSINOPHILS % (AUTO) 1 % (0-10); HEMATOCRIT 31 % (35-52); HEMOGLOBIN 10.2 G/DL (11.5-16.0); LYMPHOCYTES # (AUTO) 2.5 X 10^3 (1.0-4.0); LYMPHOCYTES % (AUTO) 18 % (12-44); MEAN CORPUSCULAR HEMOGLOBIN 31 PG (25-34); MEAN CORPUSCULAR HGB CONC 33 G/DL (32-36); MEAN CORPUSCULAR VOLUME 94 FL (80-99); MEAN PLATELET VOLUME 11.4 FL (7.4-10.4); MONOCYTES # (AUTO) 1.4 X 10^3 (0.0-1.0); MONOCYTES % (AUTO) 10 % (0-12); NEUTROPHILS # (AUTO) 9.8 X 10^3 (1.8-7.8); NEUTROPHILS % (AUTO) 71 % (42-75); PLATELET COUNT 196 10^3/uL (130-400); WHITE BLOOD COUNT 13.8 10^3/uL (4.3-11.0)
[2019-06-07] MEDS ORDERED: LEVOTHYROXINE 50 MCG (LEVOTHROID) TAB PO SCH (06:30)
[2019-06-07] MEDS: ACETAMINOPHEN 500 MG TAB (TYLENOL) PO SCH (06:48)
--- NOTE | 2019-06-07 07:38 | Discharge Inst-Women's Service ---
Discharge Inst-Women's Serv Depart Medication/Instructions New, Converted or Re-Newed RX: Other Instructions May take ibuprofen 200mg (2-3) tabs every 6hrs as needed for cramping or pain Consults/Follow Up Additional Follow Up: Yes (Dr Park in 6 weeks.) Activity Activity: Activity as Tolerated Driving Instructions: You May Drive Nothing Inside Vagina: No [place] (for 6 weeks.) Diet Discharge Diet: Regular Diet Return to The Hospital For: as below Symptoms to Report to : Swelling Increased, Bleeding Excessive, Pain Increased, Vaginal Discharge Foul For Any Problems or Questions: Contact Your Physician KOBY PARK MD Jun 07, 2019 07:38
--- NOTE | 2019-06-07 08:01 | NUR ---
ROOM SERVICE DELIVERED TRAY TO ROOM. PT PREPPING TO EAT AND THEN BREASTFEED , WILL RETURN LATER FOR VS AND ASSESSMENT. PT REQUESTING MORE PADS AND PANTIES. S/O AT THE BEDSIDE.
[2019-06-07] MEDS: DOCUSATE SODIUM 100 MG (COLACE) CAP PO SCH (09:22)
[2019-06-07 09:24] VITALS: BP 121/65
--- NOTE | 2019-06-07 11:40 | NUR ---
PT UP IN ROOM, NO NEEDS VOICED. S/O AND AT THE BEDSIDE.
--- NOTE | 2019-06-07 12:29 | Anesthesia-Regional Post-Op ---
Regional Patient Condition Mental Status: Alert, Oriented x3 Circulation: Same as Pre-Op Headache: Absent Sensation: Full Recovery Motor Block: Absent Post Op Complications Complications None Follow Up Care/Instructions Patient Instructions None needed. Anesthesia/Patient Condition Patient is doing well, no complaints, stable vital signs, no apparent adverse anesthesia problems. No complications reported per nursing. CORNELIO THOMSON CRNA Jun 07, 2019 12:29
--- NOTE | 2019-06-07 13:06 | Discharge Summary ---
Diagnosis/Chief Complaint Date of Admission Jun 05, 2019 at 19:00 Date of Discharge June 07, 2019 Discharge Date: Jun 07, 2019 Discharge Time: 1700 Admission Diagnosis Admission Diagnosis 1. IUP at 40 weeks gestation Discharge Diagnosis 1. IUP at 40 weeks gestation Reason Hospital Visit 28-year-old 2 now term 2 initially presented to labor and delivery during the evening of June 05, 2019 for induction of labor. Patient underwent Cytotec for induction of labor. Patient received 100 g of Cytotec and tolerated well. She developed a contraction pattern and did not require a second dose. Her due dateis noted to be June 06, 2019. Her care was unremarkable. Discharge Summary-OBS Procedures 1. Epidural per anesthesia 2. Spontaneous vaginal delivery 3. Repair of midline episiotomy Discharge Physical Examination Allergies: Coded Allergies: No Known Drug Allergies (Unverified , 08/16/18) Vitals & I&Os Vital Signs Date Time Temp Pulse Resp B/P (MAP) Pulse Ox O2 Delivery O2 Flow Rate FiO2 06/07/19 05:30 98.0 65 18 94/58 (70) 98 Room Air General Appearance: No Acute Distress Respiratory: Clear to Auscultation Cardiovascular: Regular Rate Abdominal: Soft (with uterus firm) Hospital Course Was the Problem List Reviewed?: Yes patient was admitted during the evening of June 05, 2019 for induction of labor at 40 weeks gestation. Her course was essentially unremarkable. She presented2 women services during the evening of June 05, 2019 for Cytotec induction. Patient had received 100 g of Cytotec in the evening of June 05 without a repeat dose given. She began contraction pattern and ultimately underwent amniotomy and in the morning of June 06, 2019. Her hemoglobin on admission was noted to be 10.7. Ultimately she received epidural per anesthesia and tolerated well. She did go on to deliver a term viable male with Apgars of 7 at 1 minute and 9 at 5 minutes. Following delivery she underwent routine care orders. She had no complications during the remainder of hospital stay. The day after delivery hemoglobin was noted to be 10.2 She tolerated regular diet. She was ambulatory and without chest pain or shortness of breath. She was felt ready for dismissal in the afternoon of June 07, 2019. She will follow-up in 6 weeks. Pending Labs Laboratory Tests 06/07/19 05:34: White Blood Count 13.8, Red Blood Count 3.31, Hemoglobin 10.2, Hematocrit 31, Mean Corpuscular Volume 94, Mean Corpuscular Hemoglobin 31, Mean Corpuscular Hemoglobin Concent 33, Red Cell Distribution Width 15.0, Platelet Count 196, Mean Platelet Volume 11.4, Neutrophils (%) (Auto) 71, Lymphocytes (%) (Auto) 18, Monocytes (%) (Auto) 10, Eosinophils (%) (Auto) 1, Basophils (%) (Auto) 0, Neutrophils # (Auto) 9.8, Lymphocytes # (Auto) 2.5, Monocytes # (Auto) 1.4, Eosinophils # (Auto) 0.1, Basophils # (Auto) 0.0 Discharge Instructions to patient/family Please see electronic discharge instructions given to patient. Discharge Medications Reviewed and agree with Discharge Medication list on patient's Discharge Instruction sheet Clinical Quality Measures DVT/VTE Risk/Contraindication: Risk Factor Score Per Nursin RFS Level Per Nursing on Admit: 1=Low/No VTE PPX KOBY PARK MD Jun 07, 2019 13:06
[2019-06-07 13:57] VITALS: BP 108/68
--- NOTE | 2019-06-07 13:57 | NUR ---
PT SITTING UP IN THE CHAIR, HOLDING INFANT. VS OBTAINED. ROUTINE MOTRIN GIVEN PO; SEE EMAR FOR FURTHER. NO NEEDS VOICED. S/O AT THE BEDSIDE.
--- NOTE | 2019-06-07 17:03 | NUR ---
DISCHARGE PAPERS PROVIDED AND REVIEWED WITH PT, PT VERBALIZES UNDERSTANDING AND DENIES ANY QUESTIONS AT THIS TIME. S/O AT THE BEDSIDE. PAPER SIGNED.
--- NOTE | 2019-06-07 17:22 | NUR ---
PT DISCHARGED FROM -311 TO [facility] VIA AMBULATORY IN STABLE CONDITION ACC BY S/O, AND THIS RN.
== END 2019-06-07 17:22 | disposition home or self-care (01) | DRG 807 ==
LOC: LDRP 19:00
PROVIDERS: ADMIT Family Medicine; ATTEND Family Medicine
PROC: 3E0DXGC Introduction of Other Therapeutic Substance into Mouth and Pharynx, External Approach (ICD-10-PCS; 2019-06-05)
PROC: 10E0XZZ Delivery of Products of Conception, External Approach (ICD-10-PCS; principal; 2019-06-06)
PROC: 0W8NXZZ Division of Female Perineum, External Approach (ICD-10-PCS; 2019-06-06)
DX: O80 Encounter for full-term uncomplicated delivery (principal); Z37.0 Single live birth; Z3A.39 39 weeks gestation of pregnancy
CPT/HCPCS: 36415; 83033; 85025; 86850; 86900; 86901

== ENCOUNTER 2019-08-03 22:17 | Emergency (ER) | payer BC ==
[~2019-08-03] VITALS: Ht 165 cm; Wt 67.5 kg
[~2019-08-03 22:17] MED LIST changes: +FOLI0.8T PO
[2019-08-03] MEDS ORDERED: LACTATED RINGERS 1,000 ML IV ONE (22:35)
[2019-08-03 22:43] LABS: BASOPHILS # (AUTO) 0.1 10^3/uL (0.0-0.1); BASOPHILS % (AUTO) 1 % (0-10); EOSINOPHILS # (AUTO) 0.2 10^3/uL (0.0-0.3); EOSINOPHILS % (AUTO) 2 % (0-10); HEMATOCRIT 38 % (35-52); HEMOGLOBIN 13.3 G/DL (11.5-16.0); LYMPHOCYTES # (AUTO) 3.2 X 10^3 (1.0-4.0); LYMPHOCYTES % (AUTO) 32 % (12-44); MEAN CORPUSCULAR HEMOGLOBIN 31 PG (25-34); MEAN CORPUSCULAR HGB CONC 35 G/DL (32-36); MEAN CORPUSCULAR VOLUME 87 FL (80-99); MEAN PLATELET VOLUME 10.2 FL (7.4-10.4); MONOCYTES % (AUTO) 10 % (0-12); NEUTROPHILS # (AUTO) 5.8 X 10^3 (1.8-7.8); NEUTROPHILS % (AUTO) 56 % (42-75); PLATELET COUNT 325 10^3/uL (130-400); RED CELL DISTRIBUTION WIDTH 13.1 % (10.0-14.5); WHITE BLOOD COUNT 10.2 10^3/uL (4.3-11.0)
--- NOTE | 2019-08-03 22:44 | ED Abdominal Pain ---
General Chief Complaint: Abdominal/GI Problems Stated Complaint: ABD PAIN Source of Information: Patient History of Present Illness Date Seen by Provider: Aug 03, 2019 Time Seen by Provider: 22:30 Initial Comments PT ARRIVES VIA POV FROM HOME C/O BILATERAL FLANK PAIN, RADIATION DOWN TO BILATERAL LOWER ABDOMEN X 2 WEEKS--STATES THIS IS 3RD EPISODE IN 2 WEEKS--PAIN IS INTERMITTENT, AND IS WORSE WITH SITTING AND BENDING AT WAIST, AND RESOLVES COMPLETELY AND IMMEDIATELY WHEN SHE HAS A BM. HOT SHOWERS HAVE ALSO HELPED. COMES IN 10-15 MINUTE EPISODES + NAUSEA, VOMITED X 1 TODAY. NO NAUSEA NOW, NAUSEA IS MOSTLY WHEN PAIN IS SEVERE. HAS BEEN HAVING DIARRHEA WELL TODAY NO FEVER VOIDING A NORMAL AMOUNT, AND NO URINARY SYMPTOMS IS EATING AND DRINKING WELL, STATES SHE DRINKS AT LEAST 64 OZ OF WATER EVERY DAY. ATE A FULL MEAL AT 1345, OTHERWISE HAS BEEN SNACKING AND HAD A PROTEIN SHAKE SINCE THEN. NO INJURY TO BACK NO SICK CONTACTS OR SUSPICIOUS FOODS. NO PRIOR HISTORY OF SIMILAR HAS NOT SOUGHT CARE UNTIL TODAY HAS NOT TAKEN ANYTHING FOR PAIN PT DELIVERED 06/05/19, , NO COMPLICATIONS. IS NO PERIOD SINCE DELIVERY. PCP: DR. PARK SENIOR SOFTWARE ENGINEER: DR. BATES Allergies and Home Medications Allergies Coded Allergies: No Known Drug Allergies (Unverified , 08/16/18) Home Medications Ferrous Sulfate 325 Mg Tablet, 325 MG PO BID Prescribed by: DOMINIQUE MCCLURE on 03/09/151943 Hyoscyamine Sulfate 0.125 Mg Tab.subl, 1-2 TAB SL Q4H Prescribed by: VINNY HOLLIDAY on [birth year]04[birth year]1949 Levetiracetam 250 Mg Tablet, 500 MG PO BID, (Reported) Levothyroxine Sodium 50 Mcg Tablet, 1 TAB PO DAILY, (Reported) Nitrofurantoin Monohyd/M-Cryst 100 Mg Capsule, 100 MG PO BID Prescribed by: VINNY HOLLIDAY on 08/04/1949 Ondansetron 4 Mg Tab.rapdis, 4 MG PO Q4H Prescribed by: VINNY HOLLIDAY on 08[birth year]04/1949 Vit/Fe Fumarate/Fa 1 Each Tablet, 1 EACH PO DAILY Prescribed by: DOMINIQUE MCCLURE on 03/09/151942 Patient Home Medication List Home Medication List Reviewed: Yes Review of Systems Review of Systems Constitutional: no symptoms reported; No chills, No dizziness, No fever Respiratory: No Symptoms Reported Cardiovascular: No Symptoms Reported Gastrointestinal: See HPI, Abdominal Pain, Diarrhea, Nausea, Vomiting Genitourinary: No Symptoms Reported Musculoskeletal: no symptoms reported Skin: no symptoms reported Psychiatric/Neurological: No Symptoms Reported Endocrine: No Symptoms Reported Hematologic/Lymphatic: No Symptoms Reported Past Zzjalos-Ysyujr-Izkzwd Hx Patient Social History Alcohol Use: Occasionally Uses Alcohol Beverage of Choice: Beer Recreational Drug Use: No Smoking Status: Never a Smoker 2nd Hand Smoke Exposure: No Recent Foreign Travel: No Contact w/Someone Who Travel: No Recent Hopitalizations: No Immunizations Up To Date Tetanus Booster (TDap): Less than 5yrs PED Vaccines UTD: Yes Past Medical History Surgeries: Yes (REVEAL RECORDER DEVICE IN PLACE FOR SYNCOPE. THYROIDECTOMY FOR BENIGN TUMOR/MASS) Thyroidectomy Respiratory: No Cardiac: Yes (ON KEPPRA FOR SYNCOPAL EPISODES; HAS A REVEAL RECORDER DEVICE IN PLACE. LAST SYNCOPAL EPSIDE WAS IN SEPTEMBER 2018. ) Syncope Neurological: Yes (ON KEPPRA FOR SYNCOPAL EPISODES) Reproductive Disorders: No Female Reproductive Disorders: Denies Sexually Transmitted Disease: No HIV/AIDS: No Genitourinary: No Gastrointestinal: No Musculoskeletal: Yes (WRIST-CHILDHOOD) Fractures Endocrine: Yes (BENIGN MASS ON THE THYROID THAT WAS REMOVED/THYROIDECTOMY) Hypothyroidsim HEENT: No Cancer: No Psychosocial: No Integumentary: Yes (CHILDHOOD) Eczema Blood Disorders: No Adverse Reaction/Blood Tranf: No Family Medical History Hypercholesterolemia 19 MOTHER Hypertension 19 MOTHER No Family History of: AIDS Abdominal aortic aneurysm José's disease Alcoholism Alzheimer's disease Aphasia Arthritis Asthma Cancer of mouth Cardiovascular disease Cataracts Colon cancer Completed stroke Congenital disease Congenital heart disease Coronary thrombosis Cystic fibrosis Deafness or hearing loss Dementia Diabetes mellitus Drug abuse Dysphasia Fibrocystic disease of breast Gastroenteritis Glaucoma Headache disorder Infertility Kidney disease Myocardial infarction Neoplasm Not obtainable due to adoption Osteoporosis Parkinson's disease Prostate cancer Psychosocial problem Respiratory disorder Seizure disorder Severe allergy Thyroid disease Tuberculosis Visual disorder Physical Exam Vital Signs Vital Signs - First Documented 08/03/19 08/04/19 22:20 00:56 Temp 36.6 Pulse 74 Resp 20 B/P (MAP) 157/109 (125) Pulse Ox 100 O2 Delivery Room Air Capillary Refill : Height/Weight/BMI Height: 5'5.00" Weight: 146lbs. 0.0oz. 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, no motor/sensory deficits, alert, normal mood/affect, oriented x 3 Skin: normal color, warm/dry Progress/Results/Core Measures Results/Orders Lab Results Laboratory Tests Test 08/03/19 22:34 08/03/19 22:40 Range/Units White Blood Count 10.2 4.3-11.0 10^3/uL Red Blood Count 4.34 L 4.35-5.85 10^6/uL Hemoglobin 13.3 11.5-16.0 G/DL Hematocrit 38 35-52 % Mean Corpuscular Volume 87 80-99 FL Mean Corpuscular Hemoglobin 31 25-34 PG Mean Corpuscular Hemoglobin Concent 35 32-36 G/DL Red Cell Distribution Width 13.1 10.0-14.5 % Platelet Count 325 130-400 10^3/uL Mean Platelet Volume 10.2 7.4-10.4 FL Neutrophils (%) (Auto) 56 42-75 % Lymphocytes (%) (Auto) 32 12-44 % Monocytes (%) (Auto) 10 0-12 % Eosinophils (%) (Auto) 2 0-10 % Basophils (%) (Auto) 1 0-10 % Neutrophils # (Auto) 5.8 1.8-7.8 X 10^3 Lymphocytes # (Auto) 3.2 1.0-4.0 X 10^3 Monocytes # (Auto) 1.0 0.0-1.0 X 10^3 Eosinophils # (Auto) 0.2 0.0-0.3 10^3/uL Basophils # (Auto) 0.1 0.0-0.1 10^3/uL Sodium Level 141 135-145 MMOL/L Potassium Level 3.4 L 3.6-5.0 MMOL/L Chloride Level 104 98-107 MMOL/L Carbon Dioxide Level 24 21-32 MMOL/L Anion Gap 13 5-14 MMOL/L Blood Urea Nitrogen 13 7-18 MG/DL Creatinine 0.89 0.60-1.30 MG/DL Estimat Glomerular Filtration Rate > 60 BUN/Creatinine Ratio 15 Glucose Level 96 70-105 MG/DL Calcium Level 10.1 8.5-10.1 MG/DL Corrected Calcium 8.5-10.1 MG/DL Total Bilirubin 0.5 0.1-1.0 MG/DL Aspartate Amino Transf (AST/SGOT) 105 H 5-34 U/L Alanine Aminotransferase (ALT/SGPT) 49 0-55 U/L Alkaline Phosphatase 88 40-136 U/L Total Protein 8.0 6.4-8.2 GM/DL Albumin 4.8 H 3.2-4.5 GM/DL Amylase Level 65 25-125 U/L Lipase 35 8-78 U/L Serum Test, Qualitative NEGATIVE NEGATIVE Urine Color YELLOW Urine Clarity CLEAR Urine pH 8 5-9 Urine Specific [place] 1.010 L 1.016-1.022 Urine Protein 2+ H NEGATIVE Urine Glucose (UA) NEGATIVE NEGATIVE Urine Ketones NEGATIVE NEGATIVE Urine Nitrite NEGATIVE NEGATIVE Urine Bilirubin NEGATIVE NEGATIVE Urine Urobilinogen NORMAL NORMAL MG/DL Urine Leukocyte Esterase 1+ H NEGATIVE Urine RBC (Auto) NEGATIVE NEGATIVE Urine RBC NONE /HPF Urine WBC 5-10 H /HPF Urine Crystals PRESENT H /LPF Urine Amorphous Sediment MOD RICARDO PHOSPHATE H /LPF Urine Bacteria MODERATE H /HPF Urine Casts NONE /LPF Urine Mucus NEGATIVE /LPF Urine Culture Indicated YES Urine Opiates Screen NEGATIVE NEGATIVE Urine Oxycodone Screen NEGATIVE NEGATIVE Urine Methadone Screen NEGATIVE NEGATIVE Urine Propoxyphene Screen NEGATIVE NEGATIVE Urine Barbiturates Screen NEGATIVE NEGATIVE Ur Tricyclic Antidepressants Screen NEGATIVE NEGATIVE Urine Phencyclidine Screen NEGATIVE NEGATIVE Urine Amphetamines Screen NEGATIVE NEGATIVE Urine Methamphetamines Screen NEGATIVE NEGATIVE Urine Benzodiazepines Screen NEGATIVE NEGATIVE Urine Cocaine Screen NEGATIVE NEGATIVE Urine Cannabinoids Screen NEGATIVE NEGATIVE My Orders Orders - VINNY HOLLIDAY DO Ed Iv/Invasive Line Start (08/03/19 22:26) Amylase (08/03/19 22:26) Cbc With Automated Diff (08/03/19 22:26) Comprehensive Metabolic Panel (08/03/19 22:26) Hcg,Qualitative Serum (08/03/19 22:26) Lipase (08/03/19 22:26) Ua Culture If Indicated (08/03/19 22:26) Drug Screen Stat (Urine) (08/03/19 22:35) Ondansetron Injection (Zofran Injectio (08/03/19 22:45) Ed Iv/Invasive Line Start (08/03/19 22:35) Lactated Ringers (Lr 1000 Ml Iv Solution (08/03/19 22:35) Stool Culture (08/03/19 22:44) Fecal Wbc (08/03/19 22:44) C Difficile Ag + Toxin A/B. (08/03/19 22:44) Urine Culture (08/03/19 22:40) Ct Abd/Pelvis Wo(Kidney Stone) (08/03/19 23:08) Acute Abd Series (08/03/19 23:08) Ketorolac Injection (Toradol Injection) (08/03/19 23:45) Nitrofurantoin Capsule,Macro (Macrobid C (08/04/19 00:45) Rx-Ondansetron Po (Rx-Zofran Po) (08/04/19 00:44) Rx-Hyoscyamine Tab (Rx-Levsin Sl) (08/04/19 00:44) Medications Given in ED Current Medications Medications Dose Ordered Sig/Peggy Route Start Time Stop Time Status Last Admin Dose Admin Ketorolac Tromethamine 30 mg ONCE ONCE IVP 08/03/19 23:45 08/03/19 23:47 DC 08/03/19 23:45 30 MG Lactated Ringer's 1,000 ml @ 0 mls/hr Q0M ONCE IV 08/03/19 22:35 08/03/19 22:38 DC 08/03/19 22:47 1,000 MLS/HR Nitrofurantoin Macrocrystals 100 mg ONCE ONCE PO 08/04/19 00:45 08/04/19 00:48 DC 08/04/19 00:58 100 MG Ondansetron HCl 4 mg ONCE ONCE IVP 08/03/19 22:45 08/03/19 22:46 DC 08/03/19 22:47 4 MG Vital Signs/I&O 08/03/19 10 22:20 00:56 Temp 36.6 Pulse 74 65 Resp 20 20 B/P (MAP) 157/109 (125) 107/87 (125) Pulse Ox 100 98 O2 Delivery Room Air Progress Progress Note : Progress Note HAD A VERY LARGE FORMED, SOFT STOOL ON ARRIVAL AND SYMPTOMS WENT AWAY IMMEDIATELY AFTER BM PAIN BEGAN TO COME BACK TORADOL GIVEN AND PAIN DID NOT RETURN. OTHERWISE UNEVENTFUL ER STAY Diagnostic Imaging Comments ABDOMEN XRAYS--LARGE AMOUNT OF STOOL IN COLON, OTHERWISE NO ACUTE PROCESS, PENDING RADIOLOGIST REVIEW CT ABDOMEN/ PELVIS--FEW SMALL SHOTTY MESENTERIC NODES--NONSPECIFIC, POSSIBLE MESENTERIC ADENITIS. LARGE AMOUNT OF STOOL IN RIGHT COLON, OTHERWISE NO ACUTE PROCESS. PER [facility] VIA FAX AT [id number] Reviewed: Reviewed by Me Departure Impression Primary Impression: Urinary tract infection Additional Impression: Enteritis Disposition: HOME, SELF-CARE Condition: Improved Departure-Patient Inst. Referrals: KOBY PARK MD (PCP/Family) Primary Care Physician Patient Instructions: [id number], Urinary Tract Infection, Adult (DC) Add. Discharge Instructions: CLEAR LIQUIDS--WATER, BROTH, JELLO, GATORADE BRATS DIET--BANANAS, RICE, APPLESAUCE, TOAST, SALTINES FOLLOW UP WITH YOUR DR ON TUESDAY FOR FURTHER CARE, RETURN TO ER IF WORSE All discharge instructions reviewed with patient and/or family. Voiced understanding. Scripts Ondansetron (Ondansetron Odt) 4 Mg Tab.rapdis 4 MG PO Q4H for Nausea/Vomiting, #10 TAB Prov: VINNY HOLLIDAY DO 08/04/19 Hyoscyamine Sulfate (Levsin-Sl) 0.125 Mg Tab.subl 1-2 TAB SL Q4H for Abdominal Pain, #10 TAB Prov: VINNY HOLLIDAY DO 08/04/19 Nitrofurantoin Monohyd/M-Cryst (Macrobid 100 mg Capsule) 100 Mg Capsule 100 MG PO BID, #20 CAP Prov: VINNY HOLLIDAY DO 08/04/19 VINNY HOLLIDAY DO Aug 03, 2019 22:44
[2019-08-03] MEDS ORDERED: ONDANSETRON 4 MG/2 ML (SDV) Z0FRAN IVP ONE (22:45)
[2019-08-03 22:50] LABS: BILIRUBIN,URINE NEGATIVE (NEGATIVE); CLARITY,URINE CLEAR; COLOR,URINE YELLOW; GLUCOSE, URINE (UA) NEGATIVE (NEGATIVE); KETONES,URINE NEGATIVE (NEGATIVE); LEUKOCYTE ESTERASE ,URINE 1+ (NEGATIVE); NITRITE,URINE NEGATIVE (NEGATIVE); PH,URINE 8 (5-9); PROTEIN,URINE 2+ (NEGATIVE); UROBILINOGEN,URINE NORMAL (NORMAL)
[2019-08-03 23:03] LABS: ALANINE AMINOTRANSFERASE 49 U/L (0-55); ALBUMIN 4.8 GM/DL (3.2-4.5); ALKALINE PHOSPHATASE 88 U/L (40-136); AMYLASE 65 U/L (25-125); BILIRUBIN,TOTAL 0.5 MG/DL (0.1-1.0); BUN/CREATININE RATIO 15; CALCIUM 10.1 MG/DL (8.5-10.1); CARBON DIOXIDE 24 MMOL/L (21-32); CHLORIDE 104 MMOL/L (98-107); CREATININE SERUM 0.89 MG/DL (0.60-1.30); GFR ESTIMATED > 60; GLUCOSE 96 MG/DL (70-105); LIPASE 35 U/L (8-78); POTASSIUM 3.4 MMOL/L (3.6-5.0); SODIUM 141 MMOL/L (135-145)
[2019-08-03 23:04] LABS: BACTERIA,URINE MODERATE /HPF
[2019-08-03 23:05] LABS: AMORPHOUS SEDIMENT,UR MOD AMOR PHOSPHATE /LPF
[2019-08-03 23:06] LABS: AMPHETAMINE SCREEN, URINE NEGATIVE (NEGATIVE); BARBITURATE SCREEN URINE NEGATIVE (NEGATIVE); BENZODIAZEPINES SCREEN URINE NEGATIVE (NEGATIVE); CANNABINOID SCREEN, URINE NEGATIVE (NEGATIVE); COCAINE SCREEN URINE NEGATIVE (NEGATIVE); METHADONE STAT NEGATIVE (NEGATIVE); METHAMPHETAMINE SCREEN URINE S NEGATIVE (NEGATIVE); OPIATE SCREEN URINE NEGATIVE (NEGATIVE); OXYCODONE STAT NEGATIVE (NEGATIVE); PROPOXYPHENE STAT NEGATIVE (NEGATIVE); TRICYCLIC ANTIDEPRESSANTS SCRE NEGATIVE (NEGATIVE)
[2019-08-03] MEDS ORDERED: KETOROLAC 30 MG/ML VIAL IVP ONE (23:45)
[2019-08-04] MEDS ORDERED: RX-HYOSCYAMINE 0.125 MG SL (LEVSIN) PPK#6 SL STA (00:44)
[2019-08-04] MEDS ORDERED: RX-ONDANSETRON 4 MG ODT (ZOFRAN) PPK #4 PO STA (00:44)
[2019-08-04] MEDS ORDERED: NITROFURANTOIN 100 MG (MACROBID) CAPSULE PO ONE (00:45)
[2019-08-04] MEDS ORDERED: HYOS0.1283 SL (00:50)
[2019-08-04] MEDS ORDERED: ONDA4TAB11 PO (00:50)
[2019-08-04] MEDS ORDERED: NITR-65 PO (00:50)
[2019-08-04 00:56] VITALS: BP 107/87
--- NOTE | 2019-08-04 06:15 | Diagnostic Imaging Report ---
CLINICAL INDICATION: Patient has pain starting in flank area that wraps around upper abdomen on both sides. Patient had episode of vomiting and diarrhea stool. EXAMS: X-ray of the chest PA view and x-ray of the abdomen supine and upright views. COMPARISONS: None. FINDINGS: LUNGS/ PLEURA: Lungs are clear. There is no pneumothorax. There is no pleural effusion. MEDIASTINUM: Unremarkable. PULMONARY VASCULATURE: Unremarkable. HEART: Unremarkable. Suspected loop recorder seen overlying the left chest region. BONES/ EXTRATHORACIC SOFT TISSUE: There is mild right curvature of the lumbar spine. ABDOMEN AND PELVIS: Unremarkable x-ray of the abdomen with nonobstructed bowel gas pattern. There is no evidence of abdominal free air. There is a large amount of stool in the rectosigmoid region. There is small amount of stool in the right colon region. There are no focal calcifications overlying the expected regions/ pathways of both kidneys, ureters, and bladder regions. IMPRESSION: 1: There is no radiographic evidence of acute cardiopulmonary process. 2: Unremarkable x-ray of the abdomen. 3: There is a large amount of stool in the rectosigmoid region. Dictated by: Dictated on workstation # [id number]
--- NOTE | 2019-08-04 06:21 | Diagnostic Imaging Report ---
PROCEDURE: CT urinary tract, rule out kidney stone. TECHNIQUE: Multiple contiguous axial images were obtained through the abdomen and pelvis without the use of intravenous contrast. Auto Exposure Controls were utilized during the CT exam to meet ALARA standards for radiation dose reduction. INDICATION: Flank pain extending into the upper abdomen as well as vomiting and diarrhea. No prior studies are available for comparison. The lung bases are clear. The liver and gallbladder are unremarkable. No biliary ductal dilatation is detected. The pancreas and spleen are unremarkable. No adrenal mass is detected. No renal calculi or hydronephrosis is identified. No definite ureteral calculi are seen. The bladder is unremarkable. Small and large bowel loops appear to be normal caliber. No CT evidence of acute appendicitis is seen. There is moderate stool in the colon. There is no free fluid or loculated fluid collection. No free air is identified. IMPRESSION: 1. No evidence of urinary tract calculi or obstruction. 2. No CT evidence of acute appendicitis. Dictated by: Dictated on workstation # [id number]
== END 2019-08-04 01:00 | disposition home or self-care (01) ==
LOC: EDUNIT# 22:17 → ER 22:18
DX: N39.0 Urinary tract infection, site not specified (principal); K52.9 Noninfective gastroenteritis and colitis, unspecified; E03.9 Hypothyroidism, unspecified; Z82.49 Family history of ischemic heart disease and other diseases of the circulatory system; Z98.890 Other specified postprocedural states
CPT/HCPCS: 36415; 74022; 74176; 80053; 80306; 81000; 82150; 83690; 84703; 85025; 87015; 87045; 87046; 87088; 87324; 87449; 87899; 89055; 96361; 96374; 96375

== ENCOUNTER → 2019-08-17 | Outpatient (CLI) | payer BC ==
[~2019-08-17] MED LIST changes: +ACHD5005 PO; +DOCU-143 PO; +HYOS0.1283 SL; +NITR-65 PO
--- NOTE | 2019-08-17 09:22 | Diagnostic Imaging Report ---
PROCEDURE: US Gallbladder. TECHNIQUE: Multiple real-time grayscale images were obtained over the right upper quadrant in various projections. INDICATION: Right upper quadrant abdominal pain. COMPARISON: Unavailable. FINDINGS: Liver: Normal in size and echotexture. No focal lesion is seen. Appropriate hepatopetal flow is demonstrated in the main portal vein. Gallbladder: The gallbladder is contracted, somewhat limiting evaluation. Mobile gallstones layer in the gallbladder lumen. The gallbladder wall is top normal in thickness, measuring 3 mm. There is no pericholecystic fluid and the technologist reports a negative sonographic Garrett's sign. Biliary Tree: No intrahepatic or extrahepatic bile duct dilation is identified. The proximal common duct measures 0.4 cm in diameter. Pancreas: No abnormality in the visualized portions of the pancreas. Right kidney: Normal parenchymal echotexture and thickness. No hydronephrosis, stone or mass. IMPRESSION: Cholelithiasis without definite sonographic findings to suggest acute cholecystitis. The gallbladder wall measures top normal in thickness, which may be artifactual in nature secondary to partial contraction. The technologist reports a negative sonographic Garrett's sign, however, acute cholecystitis should be excluded on a clinical basis. Nuclear medicine HIDA scan can be performed as clinically indicated. Dictated by: Dictated on workstation # [id number]
== END ==
LOC: RAD 07:57
PROVIDERS: ATTEND Family Medicine
DX: K80.20 Calculus of gallbladder without cholecystitis without obstruction (principal)
CPT/HCPCS: 76705

== ENCOUNTER 2019-08-20 10:45 | Day surgery (SDC) | payer BC ==
[~2019-08-20] VITALS: Ht 165 cm; Wt 67.5 kg
[2019-08-20] VITALS (9 sets, daily range): BP systolic 115–131; BP diastolic 80–86
[~2019-08-20 10:45] MED LIST changes: -ACHD5005 PO; -DOCU-143 PO
[2019-08-20] MEDS ORDERED: BUP/EPI 0.5% 1:200,000 (SENSORCAINE) 30 ML VIAL ONE (11:12)
[2019-08-20] MEDS ORDERED: ceFAZolin INJECTION 1,000 MG ONE (11:13)
[2019-08-20] MEDS ORDERED: IOPAMIDOL 61% 30 ML (ISOVUE 300) VIAL IV ONE (11:13)
[2019-08-20] MEDS ORDERED: WATER (STERILE) FOR INJECTION 10 ML ONE (11:13)
--- NOTE | 2019-08-20 11:18 | Progress Note-Pre Operative ---
Pre-Operative Progress Note H&P Reviewed The H&P was reviewed, patient examined and no changes noted. Date Seen by Provider: Aug 20, 2019 Time Seen by Provider: 11:17 Date H&P Reviewed: Aug 20, 2019 Time H&P Reviewed: 11:17 Pre-Operative Diagnosis: symptomatic choleithiasis, ruq abd pain. OREN CANAS DO Aug 20, 2019 11:18
[2019-08-20] MEDS ORDERED: MIDAZOLAM 2 MG/2 ML (VERSED) VIAL ONE (11:24)
[2019-08-20] MEDS ORDERED: fentaNYL INJECTION 100 MCG/2 ML AMP ONE (11:24)
[2019-08-20] MEDS: LACTATED RINGERS 1,000 ML IV PRN ×2 (11:38→12:09)
[2019-08-20] MEDS ORDERED: CATHETER FLUSH 10 ML SYR IV PRN (11:45)
[2019-08-20] MEDS ORDERED: ceFAZolin INJECTION 1,000 MG in WATER (STERILE) FOR INJECTION 10 ML IV ONE (11:45)
[2019-08-20] MEDS ORDERED: LIDOCAINE PF 2% 5 ML (XYLOCAINE) VIAL ONE (12:06)
[2019-08-20] MEDS ORDERED: proPOfol 200 MG/20 ML (DIPRIVAN) VIAL IV ONE (12:06)
[2019-08-20] MEDS ORDERED: ROCURONIUM 10 MG/ML 5 ML SYRINGE IV ONE (12:06)
[2019-08-20] MEDS ORDERED: ONDANSETRON 4 MG/2 ML (SDV) Z0FRAN ONE (12:06)
[2019-08-20] MEDS ORDERED: HYDROmorphone 2 MG/ML VIAL (DILAUDID) ONE (12:06)
[2019-08-20] MEDS ORDERED: DEXAMETHASONE 10 MG/ML (DECADRON) 1 ML VIAL ONE (12:06)
[2019-08-20] MEDS ORDERED: SEVOFLURANE (ULTANE) 15 ML INHAL SOLN ONE (12:06)
[2019-08-20] MEDS ORDERED: NEOSTIGMINE 3 MG/3 ML VIAL ONE (12:07)
[2019-08-20] MEDS ORDERED: GLYCOPYRROLATE 0.2 MG/ML (ROBINUL) 2 ML VIAL ONE ×2 (12:07→12:38)
[2019-08-20] MEDS ORDERED: KETOROLAC 30 MG/ML VIAL ONE (12:10)
--- NOTE | 2019-08-20 12:51 | Progress Note-Post Operative ---
Post-Operative Progess Note Surgeon (s)/Dentures Lab Technician (s) Surgeon OREN CANAS DO Dentures Lab Technician: Dr. Cramer Pre-Operative Diagnosis symptomatic choleithiasis, ruq abd pain. Post-Operative Diagnosis same and cbd obstruction Procedure & Operative Findings Date of Procedure 08/20/19 Procedure Performed/Findings lap annabelle c ioc Anesthesia Type gen Estimated Blood Loss Estimated blood loss (mL): min Specimens/Packing Specimens Removed gallbladder OREN CANAS DO Aug 20, 2019 12:51 POS
--- NOTE | 2019-08-20 12:52 | Diagnostic Imaging Report ---
INDICATION: Fluoroscopy during intraoperative cholangiogram. Fluoroscopy was provided during intraoperative cholangiogram. 25 seconds of fluoroscopic time was utilized. Intrahepatic and extrahepatic bile ducts are opacified. There is some truncation of the lower common duct with questionable filling defect. No contrast is seen extending into the duodenum and possibility of a distal common duct stone cannot be entirely excluded. IMPRESSION: Questionable common duct stone distally. No definite contrast is seen extending into the small bowel. MRCP or ERCP could be performed for further evaluation. Dictated by: Dictated on workstation # [id number]
--- NOTE | 2019-08-20 12:54 | Discharge Inst-Simple/Standard ---
Discharge Inst-Standard Discharge Medications New, Converted or Re-Newed RX: RX on Chart Patient Instructions/Follow Up Plan of Care/Instructions/FU: 2 weeks Rose Stay NPO and go to [facility] for ERCP. This has been arraged with Dr. Monreal. Activity as Tolerated: No Discharge Diet: Other Diet (NPO) Other Inst to Patient Follow up Appt: Make appointment for 2 weeks. ERCP to be done today. Instructions: No lifting greater than 10 pounds. No strenuous activity. May shower in 24 hours, no tub bath or soaking. Use incentive spirometer at home as directed. No Smoking Skin/Wound Care: You have special glue over incisions it will fall off on its own. Symptoms to Report: Appetite Changes, Extremity Discoloration, Numbness/Tingling, Swelling Increased, Bleeding Excessive, Eyesight Changes, Pain Increased, Urine Color Change, Constipation(Persistent), Fever over 101 degree F, Pain/Pressure in chest, Urinating Difficulty, Cough Up/Vomit Blood, Heart Beat Irreg/Pounding, Pain/Pressure in jaw, Vaginal Bleeding Increase, Cramps in feet or legs, Lightheadedness, Pain/Pressure in shoulder, Diarrhea(Persistent), Memory Changes Suddenly, Questions/Concerns, Weight gain consecutive days, Dizziness/Fainting, Nausea/Vomiting, Shortness of Breath, Weight gain over 2 pounds. If eyes or skin turn yellow notify physician. If questions or concerns contact your physician Or seek help at emergency department. OREN CANAS DO Aug 20, 2019 12:54 POS
[2019-08-20] MEDS ORDERED: ACHD5005 PO (12:55)
[2019-08-20] MEDS ORDERED: DOCU-143 PO (12:55)
--- NOTE | 2019-08-20 13:51 | Anesthesia-General Post-Op ---
General Patient Condition Mental Status/LOC: Same as Preop Cardiovascular: Satisfactory Nausea/Vomiting: Absent Respiratory: Satisfactory Pain: Controlled Complications: Absent Post Op Complications Complications None Follow Up Care/Instructions Patient Instructions None needed. Anesthesia/Patient Condition Patient Condition Patient is doing well, no complaints, stable vital signs, no apparent adverse anesthesia problems. ANA SHIELDS DO Aug 20, 2019 13:50 POS
--- NOTE | 2019-08-20 14:10 | NUR ---
VSS. PATIENT'S IV FLUID DC'D. SALINE LOCK LEFT IN. PATIENT UP TO GET DRESSED. PATIENT IS SUPPOSED TO REPORT DOWN AT [facility] FOR AN ERCP WITH DR. RIVERA.
--- NOTE | 2019-08-21 02:15 | OPERATIVE REPORT ---
DATE OF SERVICE: 08/20/2019 PREOPERATIVE DIAGNOSES: 1. Right upper quadrant abdominal pain. 2. Symptomatic cholelithiasis. POSTOPERATIVE DIAGNOSES: 1. Right upper quadrant abdominal pain. 2. Symptomatic cholelithiasis. 3. Common bile duct obstruction, on intraoperative cholangiogram. PROCEDURE: Laparoscopic cholecystectomy with intraoperative cholangiogram. SURGEON: Oren Rose DO TRACTOR TRAILER MOVING VAN DRIVER: Dr. Cramer, assisted in retraction, dissection and closure. ANESTHESIA: General. ESTIMATED BLOOD LOSS: Minimal. COMPLICATIONS: None. INDICATIONS: The patient is a 28-year-old female who has been having right upper quadrant abdominal pain, several episodes and ultrasound demonstrating gallbladder stones and questionable thickness. She understands risks and benefits of procedure and wished to proceed with procedure. Consent was signed in the chart. DESCRIPTION OF PROCEDURE: The patient was taken to the operating suite. She was prepped and draped in sterile fashion. Surgical pause was performed. Local anesthetic was infiltrated just above the umbilicus. The 11-blade scalpel was used to make a skin incision and cautery used to dissect down to the fascia, which was then scored and elevated. Abdomen was then entered. A 0 Vicryl was placed in a [id number] fashion for closure at the end of the case on the fascia. A balloon trocar was inserted in the abdomen and pneumoperitoneum was achieved. Under direct visualization of the laparoscope, a 5 mm trocar was placed in subxiphoid region and two 5 mm trocars were placed in the right upper quadrant. Gallbladder was grasped, elevated. The cystic duct and cystic artery were dissected out. Clips were placed on the proximal and distal portion of the cystic artery and the distal portion of the cystic duct. The duct was then partially transected. Arrow catheter was inserted and cholangiogram was performed. There was a distal obstruction of the common bile duct concerning for stone. No other filling defects. Contrast did not make it into the duodenum. The catheter was removed. Clips were placed on the proximal portion of the cystic duct and the duct was then transected along with the artery. Hook cautery was used to dissect the gallbladder from the fossa, branches of the cystic duct. Posterior branch was encountered. Clips were placed on the proximal and distal portion and this was then transected. The hook cautery was continued to dissect the gallbladder from the gallbladder fossa achieving hemostasis. Once removed, it was placed in Endobag through 12 mm trocar site. Hemostasis was achieved. The abdomen was then irrigated with copious amounts of irrigation and suction. The abdomen was reinspected. No other pathology noted. The trocars were removed. The 0 Vicryl was placed at the beginning of the case was then tied closing the 12 mm fascial defect. The abdomen was then washed and dried and the skin was then closed using 4-0 Monocryl in subcuticular fashion. Skin Affix was placed over the incisions. The patient tolerated procedure well without any complications. She was taken to recovery room in stable condition. RECOMMENDATIONS: The patient will be set up for ERCP, which has been arranged with . The patient and family were given instructions. Job ID: [id number] DocumentID: [id number] Dictated Date: 08/20/2019 20:30:01 Movement Assembly Final Inspector Date: 08/21/2019 02:15:08 Dictated By: OREN ROSE DO
== END 2019-08-20 14:15 | disposition home or self-care (01) ==
LOC: SDC 10:45
PROVIDERS: ATTEND Surgery
DX: K80.11 Calculus of gallbladder with chronic cholecystitis with obstruction (principal); E03.9 Hypothyroidism, unspecified; Z90.89 Acquired absence of other organs; Z79.899 Other long term (current) drug therapy; Z83.3 Family history of diabetes mellitus; Z82.49 Family history of ischemic heart disease and other diseases of the circulatory system
CPT/HCPCS: 84703; 87081; 88304

== ENCOUNTER → 2022-04-07 | Outpatient (CLI) | payer BC, OTHER ==
[~2022-04-07] MED LIST changes: +ACHD5005 PO; +DOCU-143 PO; -FOLI0.8T PO; +FOLI0.8T4 PO
[2022-04-07 11:31] VITALS: BP 120/89
--- NOTE | 2022-04-12 11:44 | Cardiology Stress Test Report ---
Stress Test Report Date of Procedure/Referring: Date of Procedure: Apr 07, 2022 PCP Koby Park MD Admitting Physician Admitting Physician: Attending Physician: Eula Neville Indications: Palp Baseline Heart Rate: 72 Baseline Blood Pressure: Blood Pressure Systolic: 120 Blood Pressure Diastolic: 89 Baseline EKG: Baseline EKG: NSR Summary/Conclusion: Summary: In summary, the patient started exercising with a baseline heart rate, blood pressure and EKG mentioned above Patient was able to exercise for a total of 10 minutes on Blake protocol, METs 11.7 Maximum heart rate 180 Maximum blood pressure 146/79 Stress EKG, Minimal nondiagnostic changes Recovery EKG , Return to baseline Conclusion: 1. Good exercise tolerance for a total of 10 minutes on Blake protocol, 11.7 METs, achieving 94 percent of maximum expected heart rate 2. Minimal nondiagnostic EKG changes with exercise returned to baseline during recovery 3. Occasional PVCs noted early in the test and early in exercise resolved with peak stress level, occasional PVCs noted in recovery. Copy Copies To 1: KOBY PARK MD, BASHAR J MD Apr 12, 2022 11:44
== END ==
LOC: CARD 10:30
PROVIDERS: ATTEND Physician Assistant
DX: I08.0 Rheumatic disorders of both mitral and aortic valves (principal); I10 Essential (primary) hypertension; I25.10 Atherosclerotic heart disease of native coronary artery without angina pectoris
CPT/HCPCS: 93017; 93306

== ENCOUNTER 2023-03-19 14:00 | Emergency (ER) | payer OTHER ==
[~2023-03-19] VITALS: Ht 165 cm; Wt 76.2 kg
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
[2023-03-19 14:36] LABS: BASOPHILS # (AUTO) 0.1 10^3/uL (0.0-0.1); BASOPHILS % (AUTO) 0 % (0-10); EOSINOPHILS % (AUTO) 0 % (0-10); HEMATOCRIT 37 % (35-52); HEMOGLOBIN 13.4 g/dL (11.5-16.0); LYMPHOCYTES % (AUTO) 8 % (12-44); MEAN CORPUSCULAR HEMOGLOBIN 31 pg (25-34); MEAN CORPUSCULAR HGB CONC 36 g/dL (32-36); MEAN CORPUSCULAR VOLUME 88 fL (80-99); MEAN PLATELET VOLUME 11.2 fL (9.0-12.2); MONOCYTES # (AUTO) 0.8 10^3/uL (0.0-1.0); MONOCYTES % (AUTO) 6 % (0-12); NEUTROPHILS # (AUTO) 10.9 10^3/uL (1.8-7.8); NEUTROPHILS % (AUTO) 86 % (42-75); PLATELET COUNT 313 10^3/uL (130-400); WHITE BLOOD COUNT 12.7 10^3/uL (4.3-11.0)
[2023-03-19 14:38] LABS: ALBUMIN 4.7 GM/DL (3.2-4.5)
[2023-03-19 14:39] LABS: CHLORIDE 106 MMOL/L (98-107); POTASSIUM 3.5 MMOL/L (3.6-5.0); PROTHROMBIN TIME PATIENT 13.2 SEC (12.2-14.7); SODIUM 139 MMOL/L (135-145)
[2023-03-19 14:40] LABS: CALCIUM 9.6 MG/DL (8.5-10.1)
[2023-03-19 14:41] LABS: GLUCOSE 106 MG/DL (70-105); TOTAL PROTEIN 7.6 GM/DL (6.4-8.2)
[2023-03-19 14:42] LABS: CARBON DIOXIDE 18 MMOL/L (21-32)
[2023-03-19 14:43] LABS: BILIRUBIN,TOTAL 0.9 MG/DL (0.1-1.0)
[2023-03-19 14:44] LABS: ALKALINE PHOSPHATASE 73 U/L (40-136)
[2023-03-19 14:45] LABS: CREATININE SERUM 0.82 MG/DL (0.60-1.30); GFR ESTIMATED 99
[2023-03-19 14:46] LABS: BUN/CREATININE RATIO 10
[2023-03-19 14:48] LABS: ALANINE AMINOTRANSFERASE 12 U/L (0-55); MAGNESIUM 1.7 MG/DL (1.6-2.4)
--- NOTE | 2023-03-19 14:58 | Diagnostic Imaging Report ---
Indication: Chest pain. Time of Exam: 2:29 PM Correlation is made with prior chest from 10/07/2016. Heart size normal. Cardiac loop recorder overlies left chest. Lungs are clear. No infiltrate, effusion or pneumothorax is seen. Impression: No acute abnormality is detected. Dictated by: Dictated on workstation # [id number]
[2023-03-19 15:07] LABS: BAND NEUTROPHILS 0 %; BASOPHILS % (MANUAL) 0 %; EOSINOPHILS % (MANUAL) 0 %; LYMPHOCYTES % (MANUAL) 7 %; MONOCYTES % (MANUAL) 8 %; NEUTROPHILS % (MANUAL) 85 %; RBC MORPH NORMAL
[2023-03-19] MEDS ORDERED: LORazepam 0.5 MG (ATIVAN) TABLET PO ONE (15:15)
[2023-03-19] MEDS ORDERED: KETOROLAC 15 MG/ML VIAL IVP ONE (15:15)
[2023-03-19 17:49] VITALS: BP 109/74
== END 2023-03-19 17:49 | disposition home or self-care (01) ==
LOC: EDUNIT# 14:00 → ER 14:02
DX: R11.2 Nausea with vomiting, unspecified (principal); R06.02 Shortness of breath; R25.2 Cramp and spasm; G40.909 Epilepsy, unspecified, not intractable, without status epilepticus; Z79.899 Other long term (current) drug therapy
CPT/HCPCS: 36415; 71045; 80053; 82330; 83735; 84443; 84484; 85007; 85027; 85610; 85730; 93041